=== PATIENT | female | born 1985 | race African-American/Black ===

== ENCOUNTER 2018-05-10 01:02 | Emergency (ER) | payer MEDICAID, OTHER ==
[~2018-05-10] VITALS: Ht 175.3 cm; Wt 190.5 kg
[2018-05-10 03:01] VITALS: BP 124/61
[2018-05-10 03:01] LABS: Basophils # (auto) 0 uL; Basophils % (auto) 0.5 % (0.0-2.0); Eosinophils # (auto) 0.2 uL; Hematocrit 40.6 % (36.0-46.0); Hemoglobin 13.2 g/dL (12.2-16.2); Lymphocytes # (auto) 3.4 uL; Lymphocytes % (auto) 39.5 % (10.0-50.0); Mean Corpuscular Hemoglobin 28.1 pg (28.0-32.0); Mean Corpuscular Hgb Conc. 32.5 g/dL (32.0-36.0); Mean Corpuscular Volume 86.5 fL (80.0-100.0); Monocytes # (auto) 0.6 uL; Monocytes % (auto) 6.5 % (0.0-12.0); Neutrophils # (auto) 4.5 uL; Neutrophils % (auto) 51.5 % (37.0-80.0); Platelet Count (auto) 293 10^3/uL (140-450); Red Blood Cells 4.69 10^6/uL (4.0-5.20); Red Cell Distribution Width 14.3 % (11.8-14.3); White Blood Cell 8.7 10^3/uL (4.4-10.8)
[2018-05-10 03:02] LABS: Albumin 3.3 g/dL (3.4-5.0); Anion Gap 7 (5-15); Blood Urea Nitrogen 12 mg/dL (7-18); Calcium 8.8 mg/dL (8.5-10.1); Carbon Dioxide 30 mmol/L (21-32); Chloride 101 mmol/L (98-107); Glucose 155 mg/dL (74-106); Potassium 3.5 mmol/L (3.5-5.1); Sodium 138 mmol/L (136-145)
[2018-05-10 03:04] LABS: Alanine Aminotransferase 42 U/L (13-56); Aspartate Aminotransferase 23 U/L (15-37); BUN/Creatinine Ratio 15.8; GFR African American 113 mL/min; GFR Non-African American 94 mL/min
[2018-05-10 03:09] LABS: Alkaline Phosphatase 70 U/L (45-117); Bilirubin, Total 0.2 mg/dL (0.2-1.0); Total Protein 8.2 g/dL (6.4-8.2)
[2018-05-10] MEDS ORDERED: KETOROLAC TROMETH 30 MG/ML 1ML VIAL IV ONE (03:45)
== END 2018-05-10 05:42 | disposition home or self-care (01) ==
LOC: ER 01:02
DX: R07.89 Other chest pain (principal); R42 Dizziness and giddiness; J45.909 Unspecified asthma, uncomplicated; E66.01 Morbid (severe) obesity due to excess calories; Z68.44 Body mass index [BMI] 60.0-69.9, adult
CPT/HCPCS: 36415; 71045; 80053; 83735; 84484; 85025; 93005; 96374; 99285; J1885

== ENCOUNTER 2020-06-07 23:54 | Emergency (ER) | payer MEDICAID, OTHER ==
[~2020-06-07] VITALS: Ht 175.3 cm; Wt 190.5 kg
[2020-06-08 01:06] LABS: Basophils # (auto) 0.1 10 ^3/uL (0-0.2); Eosinophils # (auto) 0.2 10 ^3/uL (0-0.8); Eosinophils % (auto) 1.6 % (0.0-7.0); Hemoglobin 12.8 g/dL (12.2-16.2); Lymphocytes # (auto) 3.9 10 ^3/uL (0.4-5.4); Mean Corpuscular Hemoglobin 28.6 pg (28.0-32.0); Mean Corpuscular Hgb Conc. 32.8 g/dL (32.0-36.0); Mean Corpuscular Volume 87.4 fL (80.0-100.0); Monocytes % (auto) 9.8 % (0.0-12.0); Neutrophils # (auto) 4.7 10 ^3/uL (1.6-8.6); Neutrophils % (auto) 47.6 % (37.0-80.0); Nucleated Red Blood Cells % 0.3 %; Platelet Count (auto) 308 10^3/uL (140-450); Red Blood Cells 4.46 10^6/uL (4.0-5.20); Red Cell Distribution Width 14.6 % (11.8-14.3); White Blood Cell 9.8 10^3/uL (4.4-10.8)
[2020-06-08 01:20] LABS: Urine Bacteria FEW /hpf (None Seen); Urine Blood Negative /uL (Negative); Urine Mucus FEW (None Seen); Urine Specific Gravity 1.026 (1.001-1.035); Urine WBC 44 /hpf (0 - 5)
[2020-06-08 01:25] VITALS: BP 119/71
[2020-06-08 01:25] LABS: Albumin 3.5 g/dL (3.4-5.0); BUN/Creatinine Ratio 21.1; Calcium 9.3 mg/dL (8.5-10.1); Magnesium 1.9 mg/dL (1.6-2.6)
[2020-06-08 01:28] LABS: Bilirubin, Total 0.3 mg/dL (0.2-1.0); Total Protein 7.9 g/dL (6.4-8.2)
== END 2020-06-08 02:55 | disposition home or self-care (01) ==
LOC: ER 23:54
DX: K80.20 Calculus of gallbladder without cholecystitis without obstruction (principal); N39.0 Urinary tract infection, site not specified; E11.9 Type 2 diabetes mellitus without complications; J45.909 Unspecified asthma, uncomplicated
CPT/HCPCS: 36415; 74176; 80053; 81001; 82150; 83690; 83735; 84702; 85025

== ENCOUNTER 2020-10-23 00:07 | Emergency (ER) | payer OTHER ==
[~2020-10-23] VITALS: Ht 172.7 cm; Wt 158.8 kg
[2020-10-23 01:12] LABS: Urine Bacteria FEW /hpf (None Seen); Urine Blood 3+ /uL (Negative); Urine Mucus FEW (None Seen); Urine Specific Gravity 1.007 (1.001-1.035); Urine WBC 9 /hpf (0 - 5)
[2020-10-23 01:35] VITALS: BP 150/88
== END 2020-10-23 03:05 | disposition home or self-care (01) ==
LOC: ER 00:09
DX: N39.0 Urinary tract infection, site not specified (principal); M54.5 Low back pain; E66.9 Obesity, unspecified; E11.9 Type 2 diabetes mellitus without complications; J45.909 Unspecified asthma, uncomplicated; Z68.43 Body mass index [BMI] 50.0-59.9, adult
CPT/HCPCS: 81001

== ENCOUNTER 2021-10-01 21:23 | Inpatient (IN) | payer OTHER ==
[~2021-10-01] VITALS: Ht 175.3 cm; Wt 224.2 kg
[2021-10-01 23:12] LABS: Basophils # (auto) 0 10 ^3/uL (0-0.2); Basophils % (auto) 0.9 % (0.0-2.0); Eosinophils # (auto) 0 10 ^3/uL (0-0.8); Hematocrit 40.8 % (36.0-46.0); Hemoglobin 13.4 g/dL (12.2-16.2); Lymphocytes # (auto) 1.4 10 ^3/uL (0.4-5.4); Lymphocytes % (auto) 34.3 % (10.0-50.0); Mean Corpuscular Hemoglobin 27.4 pg (28.0-32.0); Mean Corpuscular Hgb Conc. 32.9 g/dL (32.0-36.0); Mean Corpuscular Volume 83.5 fL (80.0-100.0); Monocytes # (auto) 0.3 10 ^3/uL (0-1.3); Monocytes % (auto) 8.4 % (0.0-12.0); Neutrophils # (auto) 2.3 10 ^3/uL (1.6-8.6); Neutrophils % (auto) 56.4 % (37.0-80.0); Nucleated Red Blood Cells % 0.2 %; Red Blood Cells 4.89 10^6/uL (4.0-5.20); Red Cell Distribution Width 14.7 % (11.8-14.3); White Blood Cell 4.1 10^3/uL (4.4-10.8)
[2021-10-01 23:32] LABS: Albumin 3.3 g/dL (3.4-5.0); Calcium 8.9 mg/dL (8.5-10.1); Potassium 3.9 mmol/L (3.5-5.1)
[2021-10-01 23:35] LABS: BUN/Creatinine Ratio 8.1; Bilirubin, Total 0.2 mg/dL (0.2-1.0)
[2021-10-02 04:29] LABS: Urine Bacteria FEW /hpf (None Seen); Urine Blood Negative /uL (Negative); Urine Mucus FEW (None Seen); Urine Specific Gravity 1.028 (1.001-1.035); Urine WBC 18 /hpf (0 - 5)
[2021-10-02] MEDS ORDERED: NITROGLYCERIN 0.4 MG SL TAB SL PRN ×2 (13:15→19:00)
[2021-10-02] MEDS ORDERED: MORPHINE SULFATE INJECTION 2 MG/ML SYRG IV PRN ×2 (13:15→19:00)
[2021-10-02] MEDS ORDERED: DICYCLOMINE HCL (10MG/ML) 2 ML AMPULE IM ONE (15:45)
[2021-10-02] MEDS ORDERED: HYDROcodone-ACET 5/325MG TAB PO PRN (19:00)
[2021-10-02] MEDS ORDERED: DEXTROSE (50%) 50ML SYRG IV PRN (19:00)
[2021-10-02] MEDS ORDERED: ACETAMINOPHEN 500 MG TAB PO PRN (19:00)
[2021-10-02] MEDS ORDERED: METOCLOPRAMIDE HCL 5MG/ml INJ 2ml VIAL IV PRN (19:00)
[2021-10-02] MEDS ORDERED: LORazepam 0.5 MG TAB PO PRN (19:00)
[2021-10-02] MEDS ORDERED: DOCUSATE SOD 100 MG CAP PO PRN (19:00)
[2021-10-02] MEDS ORDERED: ALUM & MAG HYDROX-SIMETH LIQ(MAALOX) 30 ML PO PRN (19:00)
[2021-10-02] MEDS ORDERED: REMDESIVIR PER PHARMACY 0 ML IV SCH (19:00)
[2021-10-02] MEDS ORDERED: FAMOTIDINE (10MG/ML) 2ML VL IV ONE (19:15)
[2021-10-02] MEDS ORDERED: cefTRIAXone 1GM/50ML D5W 50 ML IV ONE (19:15)
[2021-10-02] MEDS ORDERED: BENAZEPRIL HCL 10 MG TAB PO ONE (19:15)
[2021-10-02 20:05] LABS: Amphetamine Screen, Urine NEGATIVE (NEGATIVE); Barbiturate Scree,Urine NEGATIVE (NEGATIVE); Benzodiazephine Screen, Urine NEGATIVE (NEGATIVE); Cannabinoid Screen, Urine NEGATIVE (NEGATIVE); Cocaine Screen, Urine NEGATIVE (NEGATIVE); Opiate Scree,Urine NEGATIVE (NEGATIVE); Phencyclidine Screen, Urine NEGATIVE (NEGATIVE)
[2021-10-02 21:39] LABS: Albumin 3.4 g/dL (3.4-5.0); Calcium 8.8 mg/dL (8.5-10.1); Potassium 3.7 mmol/L (3.5-5.1)
[2021-10-02] MEDS ORDERED: REMDESIVIR 200 MG in NS 210ml LOADING DOSE ADULT IV ONE (21:45)
[2021-10-02 21:53] LABS: BUN/Creatinine Ratio 13.9; Bilirubin, Total 0.2 mg/dL (0.2-1.0); CRP High Sensitivity 12.1 mg/dL (< 0.3); Magnesium 3.2 mg/dL (1.6-2.6); Total Protein 8.3 g/dL (6.4-8.2)
[2021-10-02 21:59] LABS: Basophils # (auto) 0 10 ^3/uL (0-0.2); Basophils % (auto) 0.6 % (0.0-2.0); Eosinophils # (auto) 0 10 ^3/uL (0-0.8); Hematocrit 41.7 % (36.0-46.0); Hemoglobin 13.8 g/dL (12.2-16.2); Lymphocytes # (auto) 1.5 10 ^3/uL (0.4-5.4); Lymphocytes % (auto) 36.4 % (10.0-50.0); Mean Corpuscular Hemoglobin 27.7 pg (28.0-32.0); Mean Corpuscular Hgb Conc. 33.1 g/dL (32.0-36.0); Mean Corpuscular Volume 83.8 fL (80.0-100.0); Monocytes # (auto) 0.4 10 ^3/uL (0-1.3); Monocytes % (auto) 10.6 % (0.0-12.0); Neutrophils # (auto) 2.2 10 ^3/uL (1.6-8.6); Neutrophils % (auto) 52.4 % (37.0-80.0); Nucleated Red Blood Cells % 0.5 %; Red Blood Cells 4.98 10^6/uL (4.0-5.20); Red Cell Distribution Width 14.9 % (11.8-14.3); White Blood Cell 4.2 10^3/uL (4.4-10.8)
[2021-10-02 22:00] LABS: Thyroid Stimulating Hormone 2.25 uIU/mL (0.358-3.74)
[2021-10-02] MEDS ORDERED: ATORVASTATIN 20 MG TAB PO SCH (22:00)
[2021-10-02] MEDS ORDERED: DICYCLOMINE HCL 10 MG CAP PO PRN (22:00)
[2021-10-02] MEDS ORDERED: BECL80AE11 INH (22:39)
[2021-10-02] MEDS ORDERED: ALBU108A5 INH (22:39)
[2021-10-02] MEDS ORDERED: METF-869 PO (22:39)
[2021-10-02] MEDS ORDERED: CHOL10009 PO (22:39)
[2021-10-02] MEDS ORDERED: LISI-716 PO (22:39)
[2021-10-02 22:40] VITALS: BP 108/77
[2021-10-02] MEDS: FAMOTIDINE (10MG/ML) 2ML VL IV SCH (23:48)
[2021-10-02] MEDS: POTASSIUM CHL 20 Meq TABLET PO SCH (23:49)
[2021-10-02] MEDS: INSULIN LANTUS (GLARGINE) 1 /0.01ml (100units/ml) SC SCH (23:50)
[2021-10-02] MEDS: ENOXAPARIN SOD 40 MG/0.4 ML SYRINGE SC SCH (23:50)
[2021-10-02] MEDS: InsuLIN REG 1unit/0.01ml Soln (100units/ml) SC SCH (23:50)
[2021-10-02] MEDS: ACCU-CHEK COMFORT CURVE STRIP VI SCH (23:51)
[2021-10-03 05:00] VITALS: BP 113/77
[2021-10-03] MEDS: ACCU-CHEK COMFORT CURVE STRIP VI SCH ×4 (06:38→22:59)
[2021-10-03] MEDS: FUROSEMIDE 20 MG/2 ML VIAL IV SCH ×2 (06:38→17:58)
[2021-10-03] MEDS: InsuLIN REG 1unit/0.01ml Soln (100units/ml) SC SCH ×4 (06:39→23:00)
[2021-10-03] MEDS: INSULIN LANTUS (GLARGINE) 1 /0.01ml (100units/ml) SC SCH ×2 (06:45→23:00)
[2021-10-03] MEDS: BUDESONIDE (INHALATION) 180 MCG IH IN SCH ×2 (07:40→22:26)
[2021-10-03 08:28] LABS: Basophils # (auto) 0 10 ^3/uL (0-0.2); Basophils % (auto) 0.4 % (0.0-2.0); Eosinophils # (auto) 0 10 ^3/uL (0-0.8); Eosinophils % (auto) 0.5 % (0.0-7.0); Hematocrit 39.8 % (36.0-46.0); Hemoglobin 13.7 g/dL (12.2-16.2); Lymphocytes # (auto) 1.8 10 ^3/uL (0.4-5.4); Lymphocytes % (auto) 40.4 % (10.0-50.0); Mean Corpuscular Hemoglobin 28.5 pg (28.0-32.0); Mean Corpuscular Hgb Conc. 34.3 g/dL (32.0-36.0); Mean Corpuscular Volume 83.2 fL (80.0-100.0); Monocytes # (auto) 0.4 10 ^3/uL (0-1.3); Monocytes % (auto) 9.6 % (0.0-12.0); Neutrophils # (auto) 2.2 10 ^3/uL (1.6-8.6); Neutrophils % (auto) 49.1 % (37.0-80.0); Nucleated Red Blood Cells % 0.3 %; Potassium 3.8 mmol/L (3.5-5.1); Red Blood Cells 4.79 10^6/uL (4.0-5.20); Red Cell Distribution Width 14.6 % (11.8-14.3); White Blood Cell 4.5 10^3/uL (4.4-10.8)
[2021-10-03 08:45] LABS: Albumin 3.2 g/dL (3.4-5.0); BUN/Creatinine Ratio 14.3; Bilirubin, Total 0.3 mg/dL (0.2-1.0); Calcium 8.8 mg/dL (8.5-10.1); Phosphorus 2.8 mg/dL (2.5-4.90); Total Protein 7.9 g/dL (6.4-8.2)
[2021-10-03] MEDS: ASPirin 81 mg TAB PO SCH (08:58)
[2021-10-03] MEDS: AZITHROMYCIN 500MG/ 250ML 250 ML IV SCH (08:58)
[2021-10-03] MEDS: IVERMECTIN 3 MG TAB PO SCH (08:59)
[2021-10-03] MEDS: FAMOTIDINE (10MG/ML) 2ML VL IV SCH (08:59)
[2021-10-03] MEDS: DexAMETHasone SOD PHOS 10MG/1ML VIAL INJ IV SCH (09:00)
[2021-10-03] MEDS ORDERED: REMDESIVIR 200 MG in NS 210ml LOADING DOSE ADULT IV ONE ×2 (09:00→13:00)
[2021-10-03] MEDS: POTASSIUM CHL 20 Meq TABLET PO SCH ×2 (09:00→22:58)
[2021-10-03] MEDS: ASCORBIC ACID 1,000 MG TAB PO SCH (09:01)
[2021-10-03] MEDS: ZINC SULFATE 220mg CAP or TAB PO SCH (09:01)
[2021-10-03] MEDS: BENAZEPRIL HCL 10 MG TAB PO SCH (09:02)
[2021-10-03] MEDS: cefTRIAXone 1GM/50ML D5W 50 ML IV SCH (09:03)
[2021-10-03] MEDS: ENOXAPARIN SOD 40 MG/0.4 ML SYRINGE SC SCH ×2 (09:03→22:58)
[2021-10-03] MEDS: CHOLECALCIFEROL (VITD3) 2,000 UNIT CAP/TAB PO SCH (09:03)
[2021-10-03 10:15] VITALS: BP 124/89
[2021-10-03] MEDS: ALBUTEROL SULF HFA 90MCG INH 200DOSE IN PRN ×2 (11:12→22:26)
[2021-10-03 12:55] VITALS: BP 125/85
[2021-10-03] MEDS ORDERED: REMDESIVIR 100mg 100 MG in SODIUM CHL 0.9% 230 ML IV SCH (15:00)
[2021-10-03 16:45] VITALS: BP 139/73
[2021-10-03] MEDS: PANTOPRAZOLE 40 MG TAB PO SCH (17:58)
[2021-10-03 22:00] VITALS: BP 119/66
[2021-10-04 05:00] VITALS: BP 151/89
[2021-10-04] MEDS: FUROSEMIDE 20 MG/2 ML VIAL IV SCH ×2 (06:18→18:46)
[2021-10-04] MEDS: InsuLIN REG 1unit/0.01ml Soln (100units/ml) SC SCH ×4 (06:19→23:46)
[2021-10-04] MEDS: INSULIN LANTUS (GLARGINE) 1 /0.01ml (100units/ml) SC SCH ×2 (06:20→23:47)
[2021-10-04] MEDS: ACCU-CHEK COMFORT CURVE STRIP VI SCH ×4 (07:00→23:57)
[2021-10-04 09:00] VITALS: BP 145/101
[2021-10-04] MEDS ORDERED: FUROSEMIDE 20 MG/2 ML VIAL IV ONE (09:00)
[2021-10-04] MEDS: BUDESONIDE (INHALATION) 180 MCG IH IN SCH ×2 (09:19→18:56)
[2021-10-04] MEDS: ALBUTEROL SULF HFA 90MCG INH 200DOSE IN PRN ×2 (09:19→18:56)
[2021-10-04] MEDS: cefTRIAXone 1GM/50ML D5W 50 ML IV SCH (09:30)
[2021-10-04] MEDS: PANTOPRAZOLE 40 MG TAB PO SCH (09:35)
[2021-10-04] MEDS: ENOXAPARIN SOD 40 MG/0.4 ML SYRINGE SC SCH ×2 (09:35→23:57)
[2021-10-04] MEDS: BENAZEPRIL HCL 10 MG TAB PO SCH (09:35)
[2021-10-04] MEDS: DexAMETHasone SOD PHOS 10MG/1ML VIAL INJ IV SCH (09:35)
[2021-10-04] MEDS: IVERMECTIN 3 MG TAB PO SCH (09:35)
[2021-10-04] MEDS: ASCORBIC ACID 1,000 MG TAB PO SCH (09:35)
[2021-10-04] MEDS: ASPirin 81 mg TAB PO SCH (09:35)
[2021-10-04] MEDS: CHOLECALCIFEROL (VITD3) 2,000 UNIT CAP/TAB PO SCH (09:35)
[2021-10-04] MEDS: ZINC SULFATE 220mg CAP or TAB PO SCH (09:35)
[2021-10-04] MEDS: POTASSIUM CHL 20 Meq TABLET PO SCH ×2 (10:01→23:45)
[2021-10-04 10:26] LABS: Albumin 3.1 g/dL (3.4-5.0)
[2021-10-04 10:28] LABS: BUN/Creatinine Ratio 15.6
[2021-10-04 10:30] LABS: Bilirubin, Total 0.4 mg/dL (0.2-1.0); Total Protein 7.7 g/dL (6.4-8.2)
[2021-10-04] MEDS: AZITHROMYCIN 500MG/ 250ML 250 ML IV SCH (10:30)
[2021-10-04 13:10] VITALS: BP 124/83
[2021-10-04] MEDS ORDERED: DEXTROSE (50%) 50ML SYRG IV PRN (15:00)
[2021-10-04] MEDS: REMDESIVIR 100mg 100 MG in SODIUM CHL 0.9% 230 ML IV SCH (15:26)
[2021-10-04 17:00] VITALS: BP 144/94
[2021-10-04] MEDS: metFORMIN HYDROCHLORIDE 850 MG TAB PO SCH (18:47)
[2021-10-04 22:00] VITALS: BP 129/89
[2021-10-05] MEDS: MORPHINE SULFATE INJECTION 2 MG/ML SYRG IV PRN (00:40)
[2021-10-05 05:00] VITALS: BP 135/91
[2021-10-05] MEDS: InsuLIN REG 1unit/0.01ml Soln (100units/ml) SC SCH ×4 (06:25→22:42)
[2021-10-05] MEDS: ACCU-CHEK COMFORT CURVE STRIP VI SCH ×4 (06:26→22:43)
[2021-10-05] MEDS: INSULIN LANTUS (GLARGINE) 1 /0.01ml (100units/ml) SC SCH ×2 (06:26→22:42)
[2021-10-05] MEDS: FUROSEMIDE 20 MG/2 ML VIAL IV SCH ×2 (06:28→18:09)
[2021-10-05 08:00] VITALS: BP 106/57
[2021-10-05] MEDS: metFORMIN HYDROCHLORIDE 850 MG TAB PO SCH ×2 (08:30→18:09)
[2021-10-05] MEDS: ZINC SULFATE 220mg CAP or TAB PO SCH (08:31)
[2021-10-05] MEDS: DexAMETHasone SOD PHOS 10MG/1ML VIAL INJ IV SCH (08:31)
[2021-10-05] MEDS: ASPirin 81 mg TAB PO SCH (08:31)
[2021-10-05] MEDS: cefTRIAXone 1GM/50ML D5W 50 ML IV SCH (08:31)
[2021-10-05] MEDS: BENAZEPRIL HCL 10 MG TAB PO SCH (08:32)
[2021-10-05] MEDS: IVERMECTIN 3 MG TAB PO SCH (08:32)
[2021-10-05] MEDS: POTASSIUM CHL 20 Meq TABLET PO SCH ×2 (08:32→22:43)
[2021-10-05] MEDS: PANTOPRAZOLE 40 MG TAB PO SCH (08:32)
[2021-10-05] MEDS: ENOXAPARIN SOD 40 MG/0.4 ML SYRINGE SC SCH ×2 (08:33→22:43)
[2021-10-05] MEDS: CHOLECALCIFEROL (VITD3) 2,000 UNIT CAP/TAB PO SCH (08:33)
[2021-10-05] MEDS: ASCORBIC ACID 1,000 MG TAB PO SCH (08:33)
[2021-10-05 08:35] LABS: Potassium 3.9 mmol/L (3.5-5.1)
[2021-10-05 08:42] LABS: Albumin 3.3 g/dL (3.4-5.0); BUN/Creatinine Ratio 22.4; Bilirubin, Total 0.2 mg/dL (0.2-1.0); Calcium 9.2 mg/dL (8.5-10.1); Total Protein 8.4 g/dL (6.4-8.2)
[2021-10-05] MEDS: AZITHROMYCIN 500MG/ 250ML 250 ML IV SCH (10:47)
[2021-10-05 12:00] VITALS: BP 110/76
[2021-10-05] MEDS: REMDESIVIR 100mg 100 MG in SODIUM CHL 0.9% 230 ML IV SCH (14:22)
[2021-10-05] MEDS: BUDESONIDE (INHALATION) 180 MCG IH IN SCH ×2 (15:31→19:19)
[2021-10-05] MEDS: ALBUTEROL SULF HFA 90MCG INH 200DOSE IN PRN ×2 (15:31→19:19)
[2021-10-05 16:00] VITALS: BP 131/88
[2021-10-05 22:00] VITALS: BP 129/78
[2021-10-06 05:00] VITALS: BP 100/59
[2021-10-06] MEDS: FUROSEMIDE 20 MG/2 ML VIAL IV SCH ×2 (06:46→16:28)
[2021-10-06] MEDS: INSULIN LANTUS (GLARGINE) 1 /0.01ml (100units/ml) SC SCH ×2 (06:47→23:16)
[2021-10-06] MEDS: InsuLIN REG 1unit/0.01ml Soln (100units/ml) SC SCH ×4 (06:47→23:15)
[2021-10-06] MEDS: ACCU-CHEK COMFORT CURVE STRIP VI SCH ×4 (06:48→23:16)
[2021-10-06 08:00] VITALS: BP 97/72
[2021-10-06] MEDS: metFORMIN HYDROCHLORIDE 850 MG TAB PO SCH ×2 (08:00→16:28)
[2021-10-06 08:11] LABS: Basophils # (auto) 0 10 ^3/uL (0-0.2); Basophils % (auto) 0.2 % (0.0-2.0); Eosinophils # (auto) 0 10 ^3/uL (0-0.8); Eosinophils % (auto) 0.2 % (0.0-7.0); Hematocrit 42.7 % (36.0-46.0); Lymphocytes # (auto) 3.5 10 ^3/uL (0.4-5.4); Mean Corpuscular Hemoglobin 27.4 pg (28.0-32.0); Mean Corpuscular Hgb Conc. 32.9 g/dL (32.0-36.0); Mean Corpuscular Volume 83.3 fL (80.0-100.0); Monocytes # (auto) 0.8 10 ^3/uL (0-1.3); Monocytes % (auto) 8.9 % (0.0-12.0); Neutrophils # (auto) 4.6 10 ^3/uL (1.6-8.6); Neutrophils % (auto) 51.7 % (37.0-80.0); Nucleated Red Blood Cells % 0.1 %; Red Blood Cells 5.13 10^6/uL (4.0-5.20); Red Cell Distribution Width 14.7 % (11.8-14.3)
[2021-10-06 08:21] LABS: Calcium 9.9 mg/dL (8.5-10.1)
[2021-10-06] MEDS: ALBUTEROL SULF HFA 90MCG INH 200DOSE IN PRN (08:34)
[2021-10-06] MEDS: BUDESONIDE (INHALATION) 180 MCG IH IN SCH ×2 (08:34→21:16)
[2021-10-06 08:43] LABS: Albumin 3.5 g/dL (3.4-5.0); Bilirubin, Total 0.3 mg/dL (0.2-1.0); Total Protein 8.5 g/dL (6.4-8.2)
[2021-10-06] MEDS: ASPirin 81 mg TAB PO SCH (09:09)
[2021-10-06] MEDS: cefTRIAXone 1GM/50ML D5W 50 ML IV SCH (09:09)
[2021-10-06] MEDS: ZINC SULFATE 220mg CAP or TAB PO SCH (09:09)
[2021-10-06] MEDS: POTASSIUM CHL 20 Meq TABLET PO SCH ×2 (09:09→23:14)
[2021-10-06] MEDS: DexAMETHasone SOD PHOS 10MG/1ML VIAL INJ IV SCH (09:09)
[2021-10-06] MEDS: IVERMECTIN 3 MG TAB PO SCH (09:09)
[2021-10-06] MEDS: PANTOPRAZOLE 40 MG TAB PO SCH (09:09)
[2021-10-06] MEDS: AZITHROMYCIN 500MG/ 250ML 250 ML IV SCH (09:09)
[2021-10-06] MEDS: BENAZEPRIL HCL 10 MG TAB PO SCH (09:09)
[2021-10-06] MEDS: ASCORBIC ACID 1,000 MG TAB PO SCH (09:10)
[2021-10-06] MEDS: ENOXAPARIN SOD 40 MG/0.4 ML SYRINGE SC SCH ×2 (09:10→23:16)
[2021-10-06] MEDS: CHOLECALCIFEROL (VITD3) 2,000 UNIT CAP/TAB PO SCH (09:10)
[2021-10-06] MEDS ORDERED: DEX4T PO (09:32)
[2021-10-06] MEDS ORDERED: ALBUAER3 IN (09:32)
[2021-10-06] MEDS ORDERED: ASPI1TAB20 PO (09:32)
[2021-10-06] MEDS ORDERED: METF-371 PO (09:32)
[2021-10-06] MEDS ORDERED: FURO40TA4 PO (09:32)
[2021-10-06] MEDS ORDERED: ASCO10003 PO (09:32)
[2021-10-06] MEDS ORDERED: CHOL1CAP47 PO (09:32)
[2021-10-06] MEDS ORDERED: ZINC220T6 PO (09:32)
[2021-10-06 12:00] VITALS: BP 127/84
[2021-10-06] MEDS: REMDESIVIR 100mg 100 MG in SODIUM CHL 0.9% 230 ML IV SCH (15:00)
[2021-10-06] MEDS ORDERED: BENA10TA15 PO (15:08)
[2021-10-06] MEDS ORDERED: BACL20TA PO (15:08)
[2021-10-06 16:00] VITALS: BP 127/83
[2021-10-06] MEDS ORDERED: fentaNYL Drip 2500mCg/250mlNS 250 ML IV ONE (18:18)
[2021-10-06] MEDS ORDERED: MIDAZOLAM DRIP 50 mg/50mL 50 ML IV ONE (18:18)
[2021-10-06 21:46] VITALS: BP 134/87
[2021-10-06] MEDS: MORPHINE SULFATE INJECTION 2 MG/ML SYRG IV PRN (23:52)
[2021-10-07] MEDS: ALBUTEROL SULF HFA 90MCG INH 200DOSE IN PRN ×2 (01:05→12:07)
[2021-10-07 05:00] VITALS: BP 114/76
[2021-10-07] MEDS: FUROSEMIDE 20 MG/2 ML VIAL IV SCH ×2 (06:27→18:00)
[2021-10-07] MEDS: InsuLIN REG 1unit/0.01ml Soln (100units/ml) SC SCH ×3 (06:28→17:00)
[2021-10-07] MEDS: INSULIN LANTUS (GLARGINE) 1 /0.01ml (100units/ml) SC SCH (06:28)
[2021-10-07] MEDS: ACCU-CHEK COMFORT CURVE STRIP VI SCH ×3 (06:29→17:00)
[2021-10-07] MEDS: BUDESONIDE (INHALATION) 180 MCG IH IN SCH (08:28)
[2021-10-07 09:00] VITALS: BP 134/96
[2021-10-07] MEDS: metFORMIN HYDROCHLORIDE 850 MG TAB PO SCH ×2 (09:26→18:00)
[2021-10-07] MEDS: ASPirin 81 mg TAB PO SCH (09:27)
[2021-10-07] MEDS: ZINC SULFATE 220mg CAP or TAB PO SCH (09:27)
[2021-10-07] MEDS: cefTRIAXone 1GM/50ML D5W 50 ML IV SCH (09:27)
[2021-10-07] MEDS: DexAMETHasone SOD PHOS 10MG/1ML VIAL INJ IV SCH (09:27)
[2021-10-07] MEDS: IVERMECTIN 3 MG TAB PO SCH (09:28)
[2021-10-07] MEDS: PANTOPRAZOLE 40 MG TAB PO SCH (09:28)
[2021-10-07] MEDS: POTASSIUM CHL 20 Meq TABLET PO SCH (09:28)
[2021-10-07] MEDS: BENAZEPRIL HCL 10 MG TAB PO SCH (09:28)
[2021-10-07] MEDS: CHOLECALCIFEROL (VITD3) 2,000 UNIT CAP/TAB PO SCH (09:29)
[2021-10-07] MEDS: ENOXAPARIN SOD 40 MG/0.4 ML SYRINGE SC SCH (09:29)
[2021-10-07] MEDS: ASCORBIC ACID 1,000 MG TAB PO SCH (09:29)
[2021-10-07] MEDS: AZITHROMYCIN 500MG/ 250ML 250 ML IV SCH (11:04)
[2021-10-07 13:00] VITALS: BP 97/58
[2021-10-07] MEDS: REMDESIVIR 100mg 100 MG in SODIUM CHL 0.9% 230 ML IV SCH (15:30)
[2021-10-07 17:00] VITALS: BP 129/87
[2021-10-07 17:16] VITALS: BP 127/87
== END 2021-10-07 17:45 | disposition home or self-care (01) | DRG 137 ==
LOC: ER 21:25 → TELE 10-02 13:07 → TELE-WESTW 10-02 21:45
PROVIDERS: ADMIT Hospitalist; ATTEND Internal Medicine
PROC: XW033E5 Introduction of Remdesivir Anti-infective into Peripheral Vein, Percutaneous Approach, New Technology Group 5 (ICD-10-PCS; principal; 2021-10-04)
DX: U07.1 COVID-19 (principal); J96.01 Acute respiratory failure with hypoxia; J12.82 Pneumonia due to coronavirus disease 2019; D89.839 Cytokine release syndrome, grade unspecified; E88.09 Other disorders of plasma-protein metabolism, not elsewhere classified; E66.2 Morbid (severe) obesity with alveolar hypoventilation; Z68.45 Body mass index [BMI] 70 or greater, adult; J45.909 Unspecified asthma, uncomplicated; I10 Essential (primary) hypertension; N39.0 Urinary tract infection, site not specified; E11.9 Type 2 diabetes mellitus without complications; E78.5 Hyperlipidemia, unspecified; Z88.0 Allergy status to penicillin; Z23 Encounter for immunization
CPT/HCPCS: 36415; 36600; 71045; 80053; 80061; 80307; 81001; 81025; 82306; 82728; 82805; 82962; 83036; 83605; 83615; 83735; 83880; 84100; 84443; 84484; 85025; 85379; 86141; 87040; 87086; 87426; 94640; 96372; G0378; J0696; J1100; J1815; J2250; J3490

== ENCOUNTER 2022-05-07 19:08 | Emergency (ER) | payer OTHER ==
[~2022-05-07] VITALS: Ht 172.7 cm; Wt 222.0 kg
[~2022-05-07 19:08] MED LIST: ALBUAER3 IN; ASCO10003 PO; ASPI1TAB20 PO; BACL20TA PO; BECL80AE11 INH; BENA10TA15 PO; CHOL1CAP47 PO; DEX4T PO; FURO40TA4 PO; METF-371 PO; ZINC220T6 PO
[2022-05-07] MEDS ORDERED: cloNIDine HCL 0.1 MG TAB PO ONE (19:45)
[2022-05-07 21:01] LABS: Albumin 3.5 g/dL (3.4-5.0); BUN/Creatinine Ratio 20.2; Calcium 9.4 mg/dL (8.5-10.1); Magnesium 2.1 mg/dL (1.6-2.6); Potassium 4.2 mmol/L (3.5-5.1)
[2022-05-07 21:04] LABS: Bilirubin, Total 0.2 mg/dL (0.2-1.0)
[2022-05-07 21:08] LABS: INR 1.02 (0.9-1.15); Partial Thromboplastin Time 28.2 sec (24.6-33.4)
[2022-05-07 21:15] LABS: Basophils # (auto) 0.1 10 ^3/uL (0-0.2); Basophils % (auto) 0.7 % (0.0-2.0); Eosinophils # (auto) 0.1 10 ^3/uL (0-0.8); Eosinophils % (auto) 1.3 % (0.0-7.0); Hemoglobin 12.7 g/dL (12.2-16.2); Lymphocytes % (auto) 24.5 % (10.0-50.0); Mean Corpuscular Hemoglobin 27.1 pg (28.0-32.0); Mean Corpuscular Hgb Conc. 31.7 g/dL (32.0-36.0); Mean Corpuscular Volume 85.5 fL (80.0-100.0); Monocytes # (auto) 0.8 10 ^3/uL (0-1.3); Monocytes % (auto) 9.1 % (0.0-12.0); Neutrophils # (auto) 5.3 10 ^3/uL (1.6-8.6); Neutrophils % (auto) 64.4 % (37.0-80.0); Nucleated Red Blood Cells % 0.1 %; Red Blood Cells 4.68 10^6/uL (4.0-5.20); Red Cell Distribution Width 14.4 % (11.8-14.3); White Blood Cell 8.3 10^3/uL (4.4-10.8)
[2022-05-08 00:04] LABS: Urine Bacteria NONE SEEN /hpf (None Seen); Urine Blood Negative /uL (Negative); Urine Specific Gravity 1.029 (1.001-1.035); Urine WBC 21 /hpf (0 - 5)
[2022-05-08] MEDS ORDERED: NITR-87 PO (02:09)
[2022-05-08] MEDS ORDERED: NITROFURANTOIN 100 mg CAP PO ONE (02:15)
[2022-05-08 03:20] VITALS: BP 128/87
== END 2022-05-08 03:54 | disposition home or self-care (01) ==
LOC: EDBD 19:08 → ER 19:08 → EDUNIT# 19:08 → ER 05-08 03:54
DX: M79.662 Pain in left lower leg (principal); M79.661 Pain in right lower leg; E11.65 Type 2 diabetes mellitus with hyperglycemia; E66.01 Morbid (severe) obesity due to excess calories; J45.909 Unspecified asthma, uncomplicated; I10 Essential (primary) hypertension; Z88.0 Allergy status to penicillin; Z68.45 Body mass index [BMI] 70 or greater, adult
CPT/HCPCS: 36415; 80053; 81001; 83735; 83880; 84484; 85025; 85610; 85730; 93005; 93970

== ENCOUNTER 2023-12-26 07:23 | Emergency (ER) | payer OTHER ==
[~2023-12-26] VITALS: Ht 172.7 cm; Wt 217.2 kg
[~2023-12-26 07:23] MED LIST changes: -BENA10TA15 PO; +BENA10TA90 PO; +NITR-87 PO
[2023-12-26 08:26] LABS: Basophils # (auto) 0.1 10 ^3/uL (0-0.2); Eosinophils # (auto) 0.1 10 ^3/uL (0-0.8); Eosinophils % (auto) 1.9 % (0.0-7.0); Hematocrit 39.7 % (36.0-46.0); Lymphocytes # (auto) 2.9 10 ^3/uL (0.4-5.4); Lymphocytes % (auto) 39.3 % (10.0-50.0); Mean Corpuscular Hemoglobin 28.6 pg (28.0-32.0); Mean Corpuscular Hgb Conc. 32.7 g/dL (32.0-36.0); Mean Corpuscular Volume 87.3 fL (80.0-100.0); Monocytes # (auto) 0.7 10 ^3/uL (0-1.3); Monocytes % (auto) 8.9 % (0.0-12.0); Neutrophils # (auto) 3.7 10 ^3/uL (1.6-8.6); Neutrophils % (auto) 48.9 % (37.0-80.0); Nucleated Red Blood Cells % 0.2 %; Red Blood Cells 4.55 10^6/uL (4.0-5.20); Red Cell Distribution Width 13.5 % (11.8-14.3); White Blood Cell 7.5 10^3/uL (4.4-10.8)
[2023-12-26] MEDS: LIDOCAINE VISCOUS 2% 15ML UD PO ONE (08:40)
[2023-12-26] MEDS: ONDANSETRON ODT 4 MG TAB PO ONE (08:40)
[2023-12-26] MEDS: DONNATAL 5ml ORAL Elix (BELLADONNA ALK-PHENOBARB) PO ONE (08:41)
[2023-12-26] MEDS: MAALOX PLUS or MAALOX 30 ML PO ONE (08:41)
[2023-12-26 08:50] VITALS: BP 145/91; PULSE 87; RESP 17; TEMP 97.4; O2SAT 96
[2023-12-26 08:57] LABS: Urine Bacteria FEW /hpf (None Seen); Urine Blood Negative /uL (Negative); Urine Clarity Turbid (Clear); Urine Color Yellow (Yellow); Urine Mucus FEW (None Seen); Urine Protein, UAD TRACE (Negative); Urine Specific Gravity 1.028 (1.001-1.035); Urine Urobilinogen Normal (Negative); Urine WBC 8 /hpf (0 - 5); Urine pH 5.5 (5.0-9.0)
[2023-12-26 09:00] LABS: Alanine Aminotransferase 28 U/L (7-40); Albumin 4.3 g/dL (3.2-4.8); Alkaline Phosphatase 58 U/L (46-116); Anion Gap 8 (5-15); Aspartate Aminotransferase 20 U/L (13-40); BUN/Creatinine Ratio 12.1 (10.0-20.0); Blood Urea Nitrogen 8 mg/dL (9-23); Calcium 9.4 mg/dL (8.5-10.1); Carbon Dioxide 25 mmol/L (20-30); Chloride 105 mmol/L (98-107); Glucose 173 mg/dL (74-106); Potassium 3.6 mmol/L (3.5-5.1); Sodium 138 mmol/L (136-145)
[2023-12-26 09:01] LABS: Bilirubin, Total 0.4 mg/dL (0.2-1.0)
[2023-12-26 10:18] LABS: Lipase 31 U/L (12-53); Magnesium 1.7 mg/dL (1.6-2.6)
[2023-12-26 15:14] LABS: Urine Bacteria FEW /hpf (None Seen); Urine Blood Negative /uL (Negative); Urine Clarity Turbid (Clear); Urine Color Yellow (Yellow); Urine Mucus FEW (None Seen); Urine Protein, UAD 1+ (Negative); Urine Urobilinogen Normal (Negative); Urine WBC 16 /hpf (0 - 5); Urine pH 5.5 (5.0-9.0)
== END 2023-12-26 17:50 | disposition left against medical advice (07) ==
LOC: ER 07:23
DX: R10.13 Epigastric pain (principal); R10.2 Pelvic and perineal pain; J45.909 Unspecified asthma, uncomplicated; E11.9 Type 2 diabetes mellitus without complications; I10 Essential (primary) hypertension; Z32.02 Encounter for pregnancy test, result negative; Z88.0 Allergy status to penicillin
CPT/HCPCS: 36415; 80053; 81001; 81025; 83690; 83735; 84702; 85025; 99284; Q0162

== ENCOUNTER 2024-03-13 05:46 | Inpatient (IN) | payer OTHER ==
[2024-03-13] VITALS (10 sets, daily range): BP systolic 110–140; BP diastolic 53–105; PULSE 60–73; RESP 13–20; TEMP 97.6–98; O2SAT 94–100
[~2024-03-13] VITALS: Ht 175.3 cm; Wt 214.8 kg
[2024-03-13 09:00] LABS: COVID19 ANTIGEN SOFIA FIA POSITIVE (NEGATIVE)
[2024-03-13 09:11] LABS: Basophils # (auto) 0 10 ^3/uL (0-0.2); Basophils % (auto) 0.7 % (0.0-2.0); Eosinophils # (auto) 0.1 10 ^3/uL (0-0.8); Eosinophils % (auto) 1.7 % (0.0-7.0); Hematocrit 40.8 % (36.0-46.0); Hemoglobin 13.4 g/dL (12.2-16.2); Lymphocytes # (auto) 2.4 10 ^3/uL (0.4-5.4); Lymphocytes % (auto) 51.4 % (10.0-50.0); Mean Corpuscular Hemoglobin 28.8 pg (28.0-32.0); Mean Corpuscular Hgb Conc. 32.8 g/dL (32.0-36.0); Mean Corpuscular Volume 87.8 fL (80.0-100.0); Monocytes # (auto) 0.6 10 ^3/uL (0-1.3); Monocytes % (auto) 13.9 % (0.0-12.0); Neutrophils # (auto) 1.5 10 ^3/uL (1.6-8.6); Neutrophils % (auto) 32.3 % (37.0-80.0); Nucleated Red Blood Cells % 0.2 %; Red Blood Cells 4.65 10^6/uL (4.0-5.20); Red Cell Distribution Width 14.5 % (11.8-14.3); White Blood Cell 4.7 10^3/uL (4.4-10.8)
[2024-03-13 09:14] LABS: Chloride 104 mmol/L (98-107); Potassium 3.8 mmol/L (3.5-5.1); Sodium 139 mmol/L (136-145)
[2024-03-13 09:15] LABS: Anion Gap 5 (5-15); Carbon Dioxide 30 mmol/L (20-30)
[2024-03-13 09:16] LABS: Calcium 9.6 mg/dL (8.5-10.1)
[2024-03-13 09:16] LABS: Urine Bacteria FEW /hpf (None Seen); Urine Blood Negative /uL (Negative); Urine Clarity Clear (Clear); Urine Color Light-Yellow (Yellow); Urine Protein, UAD Negative (Negative); Urine Specific Gravity 1.014 (1.001-1.035); Urine Urobilinogen Normal (Negative); Urine WBC 6 /hpf (0 - 5)
[2024-03-13 09:20] LABS: BUN/Creatinine Ratio 10.3 (10.0-20.0); Blood Urea Nitrogen 7 mg/dL (9-23); Glucose 141 mg/dL (74-106)
[2024-03-13] MEDS ORDERED: PATIENTS OWN MEDICATION (Baclofen 1 TAB) PO PRN (10:45)
[2024-03-13] MEDS ORDERED: DEXTROSE (50%) 50ML SYRG IV PRN (10:45)
[2024-03-13] MEDS: InsuLIN REG 1unit/0.01ml Soln (100units/ml) SC SCH (11:11)
[2024-03-13] MEDS: ACCU-CHEK COMFORT CURVE STRIP VI SCH (11:11)
[2024-03-13] MEDS: cefTRIAXone 1GM/50ML D5W 50 ML IV ONE (11:13)
[2024-03-13] MEDS ORDERED: BACLOFEN 10 MG TAB PO PRN (11:15)
[2024-03-13] MEDS: SODIUM CHLORIDE 0.9% 1,000 ML IV SCH (11:27)
[2024-03-13 11:34] LABS: LDL Cholesterol 78 mg/dL (< 100); Triglycerides 159 mg/dL (< 150)
[2024-03-13 11:35] LABS: Cholesterol 140 mg/dL (< 200); HDL Cholesterol 45 mg/dL (40-59)
[2024-03-13] MEDS: ALBUTEROL SULF 2.5 MG/0.5ML(0.5%) NEB SOLN NEB PRN (12:15)
[2024-03-13] MEDS: ALBUTEROL SULF 2.5 MG/0.5ML(0.5%) NEB SOLN NEB SCH (14:11)
[2024-03-13] MEDS: IPRATROPIUM BROM 0.5 MG/2.5ML INH SOL NEB SCH (14:11)
[2024-03-13] MEDS ORDERED: ALBUTEROL SULF HFA 90MCG INH 200DOSE IN PRN (18:00)
[2024-03-14] VITALS (10 sets, daily range): BP systolic 119–137; BP diastolic 70–89; PULSE 63–83; RESP 18–22; TEMP 97.6–98.1; O2SAT 94–98
[2024-03-14 06:56] LABS: Basophils # (auto) 0 10 ^3/uL (0-0.2); Basophils % (auto) 0.7 % (0.0-2.0); Eosinophils # (auto) 0.2 10 ^3/uL (0-0.8); Eosinophils % (auto) 4.2 % (0.0-7.0); Hematocrit 38.5 % (36.0-46.0); Hemoglobin 12.7 g/dL (12.2-16.2); Lymphocytes # (auto) 1.8 10 ^3/uL (0.4-5.4); Lymphocytes % (auto) 39.4 % (10.0-50.0); Mean Corpuscular Hemoglobin 28.8 pg (28.0-32.0); Mean Corpuscular Hgb Conc. 33.1 g/dL (32.0-36.0); Mean Corpuscular Volume 86.8 fL (80.0-100.0); Monocytes # (auto) 0.7 10 ^3/uL (0-1.3); Monocytes % (auto) 14.7 % (0.0-12.0); Neutrophils # (auto) 1.9 10 ^3/uL (1.6-8.6); Nucleated Red Blood Cells % 0.3 %; Red Blood Cells 4.43 10^6/uL (4.0-5.20); Red Cell Distribution Width 14.2 % (11.8-14.3); White Blood Cell 4.6 10^3/uL (4.4-10.8)
[2024-03-14 07:05] LABS: Alanine Aminotransferase 29 U/L (7-40); Albumin 4.1 g/dL (3.2-4.8); Alkaline Phosphatase 58 U/L (46-116); Anion Gap 3 (5-15); Aspartate Aminotransferase 16 U/L (13-40); BUN/Creatinine Ratio 8.3 (10.0-20.0); Blood Urea Nitrogen 6 mg/dL (9-23); Calcium 9.3 mg/dL (8.5-10.1); Carbon Dioxide 30 mmol/L (20-30); Chloride 104 mmol/L (98-107); Glucose 166 mg/dL (74-106); Potassium 4.3 mmol/L (3.5-5.1); Sodium 137 mmol/L (136-145)
[2024-03-14 07:06] LABS: Bilirubin, Total 0.3 mg/dL (0.2-1.0)
[2024-03-14 07:07] LABS: Total Protein 6.9 g/dL (5.7-8.2)
[2024-03-14] MEDS: ZINC SULFATE 220mg CAP or TAB PO SCH (09:31)
[2024-03-14] MEDS: cefTRIAXone 1GM/50ML D5W 50 ML IV SCH (09:31)
[2024-03-14] MEDS: ASPirin-EC 81 mg tab PO SCH (09:31)
[2024-03-14] MEDS: BENAZEPRIL HCL 10 MG TAB PO SCH (09:31)
[2024-03-14] MEDS: CHOLECALCIFEROL (VITD3) 1,000UNIT=25mCg TAB PO SCH (09:31)
[2024-03-14] MEDS: ENOXAPARIN SOD 40 MG/0.4 ML SYRINGE SC SCH (09:32)
[2024-03-14] MEDS ORDERED: PATIENTS OWN MEDICATION (Zinc Sulfate 220 MG) PO SCH (10:00)
[2024-03-14] MEDS ORDERED: PATIENTS OWN MEDICATION (Cholecalciferol (Vitamin D3 Super Strength) 4,000 UNIT) PO SCH (10:00)
[2024-03-14] MEDS: ACETAMINOPHEN 325 MG TAB PO PRN (12:29)
[2024-03-15 05:00] VITALS: BP 124/82; PULSE 72; RESP 19; TEMP 97.6; O2SAT 94
[2024-03-15 08:00] VITALS: PULSE 77; RESP 12; O2SAT 96
[2024-03-15 08:12] VITALS: O2SAT 96
[2024-03-15 09:00] VITALS: BP 128/84; PULSE 77; RESP 12; TEMP 99.2; O2SAT 96
[2024-03-15 13:00] VITALS: BP 131/92; PULSE 81; RESP 16; TEMP 98.7; O2SAT 95
[2024-03-15 13:39] VITALS: BP 131/92; PULSE 81; RESP 16; TEMP 98.7; O2SAT 95
== END 2024-03-15 15:15 | disposition home or self-care (01) | DRG 137 ==
LOC: ER 05:46 → OVERFLOW 11:10 → EAST 12:57
PROVIDERS: ADMIT Nurse Practitioner Family; ATTEND Nurse Practitioner Family
DX: U07.1 COVID-19 (principal); Z68.45 Body mass index [BMI] 70 or greater, adult; J98.4 Other disorders of lung; J45.909 Unspecified asthma, uncomplicated; E11.9 Type 2 diabetes mellitus without complications; E66.01 Morbid (severe) obesity due to excess calories; I10 Essential (primary) hypertension; N30.00 Acute cystitis without hematuria; Z71.3 Dietary counseling and surveillance; Z88.0 Allergy status to penicillin
CPT/HCPCS: 36415; 71045; 80048; 80053; 80061; 81001; 82962; 83036; 84443; 85025; 85379; 87086; 87426; 94640; G0378; J1815

== ENCOUNTER 2024-08-04 07:49 | Inpatient (IN) | payer OTHER ==
[~2024-08-04] VITALS: Ht 175.3 cm; Wt 217.8 kg
[2024-08-04 08:31] LABS: Urine Bacteria FEW /hpf (None Seen); Urine Blood Negative /uL (Negative); Urine Clarity Turbid (Clear); Urine Color Colorless (Yellow); Urine Protein, UAD Negative (Negative); Urine Specific Gravity 1.012 (1.001-1.035); Urine Urobilinogen Normal (Negative); Urine WBC 15 /hpf (0 - 5)
[2024-08-04 08:45] VITALS: PULSE 102; RESP 22; O2SAT 98
--- NOTE | 2024-08-04 12:27 | ED.PDOC ---
GI ASSESSMENT HPI Comments 38-year-old female with PMHx Asthma, DM, HTN presents with a chief complaint of abdominal pain x 1 week with associated vomiting and nausea. Patient states that her pain is localized to her suprapubic region, non-radiating, describes as cramping and rates her pain a 9/10. Patient mentions that "a long time ago, they told me I had a cyst". Patient denies any rectal bleeding, diarrhea, or any injuries/trauma prior to onset of symptoms. Patient is alert and oriented. Chief Complaint: Abdominal Pain Time Seen by MD: 12:19 Primary Care Provider: Dr Williamson Reviewed Notes: Medications, Allergies Allergies: Coded Allergies: Penicillins (Verified Allergy, Unknown, 10/03/21) Home Meds Active Scripts Nitrofurantoin Monohydrate Mac (Macrobid) 100 Mg Cap, 100 MG PO BID for 7 Days, #14 CAP Prov:LIAN SANCHES MD 05/08/22 Baclofen (Baclofen) 20 Mg Tab, 1 TAB PO TIDP PRN, #30 TAB 0 Refills as needed for muscle spasm Prov:GLORY CISNEROS MD 10/06/21 Benazepril Hcl (Benazepril Hcl) 10 Mg Tab, 10 MG PO DAILY for 30 Days, #30 TAB Prov:GLORY CISNEROS MD 10/06/21 Aspirin (Aspir-81) 81 Mg Tab, 1 TAB PO DAILY, #30 TAB 0 Refills Prov:GLORY CISNEROS MD 10/06/21 Metformin Hydrochloride (Metformin Hcl) 850 Mg Tab, 850 MG PO BIDWM for 30 Days, #60 TAB Prov:GLORY CISNEROS MD 10/06/21 Furosemide (Furosemide) 40 Mg Tab, 1 TAB PO DAILY for 7 Days, #7 TAB 0 Refills Prov:GLORY CISNEROS MD 10/06/21 Dexamethasone (Decadron) 4 Mg Tb, 6 MG PO DAILY for 5 Days, #8 TAB Prov:GLORY CISNEROS MD 10/06/21 Zinc Sulfate (Zinc Sulfate) 220 Mg Tab, 220 MG PO DAILY for 30 Days, #30 TAB Prov:GLORY CISNEROS MD 10/06/21 Cholecalciferol (Vitamin D3 Super Strength) 2,000 Unit Cap, 4000 UNIT PO DAILY for 30 Days, #60 CAP Prov:GLORY CISNEROS MD 10/06/21 Ascorbic Acid (Gnp Vitamin C W/Marlin Hips) 1,000 Mg Tab, 1000 MG PO DAILY for 30 Days, #30 TAB Prov:GLORY CISNEROS MD 10/06/21 Albuterol Sulfate (VENTOLIN MDI) 90 Mcg Ih, 180 MCG IN TIDPRN PRN, #1 INH 2 puffs (180 mcg) tid prn for shortness of breath Prov:GLORY CISNEROS MD 10/06/21 Reported Medications Beclomethasone Dipropionate (Qvar Redihaler) 80 Mcg/Act Aer, INH PRN 10/02/21 Information Source: Patient Mode of Arrival: Ambulatory Timing: Days Duration: Since onset Prehospital treatment: None Quality: Cramping Vomitus: None Stool: Normal Severity: Moderate Recent: None Recent Hx of: None Pain Location: Suprapubic Past Medical History PAST MEDICAL HISTORY: Asthma, DM, HTN Surgical History: Denies all surgeries [employer] History: Ovarian Cysts Family History Family History: Reviewed,noncontributory to illness Social History Smoker: Non-Smoker Alcohol: Occasionally Drugs: Denies Drug Use Lives In: Home Constitutional: denies: chills, diaphoresis, fatigue, fever, malaise, sweats, weakness, others EENTM: denies: blurred vision, double vision, ear bleeding, ear discharge, ear drainage, ear pain, ear ringing, eye pain, eye redness, hearing loss, mouth pain, mouth swelling, nasal discharge, nose bleeding, nose congestion, nose pain, photophobia, tearing, throat pain, throat swelling, voice changes, others Respiratory: denies: cough, hemoptysis, orthopnea, SOB at rest, shortness of breath, SOB with excertion, stridor, wheezing, others Cardiovascular: denies: chest pain, dizzy spells, diaphoresis, Dyspnea on exertion, edema, irregular heart beat, left arm pain, lightheadedness, palpitations, PND, syncope, others Gastrointestinal: reports: abdominal pain, nausea, vomiting; denies: abdomen distended, blood streaked bowels, constipated, diarrhea, dysphagia, difficulty swallowing, hematemesis, melena, poor appetite, poor fluid intake, rectal bleeding, rectal pain, others Genitourinary: denies: abnormal vagina bleeding, burning, dyspareunia, dysuria, flank pain, frequency, hematuria, incontinence, pain, , vagina discharge , urgency, others Neurological: denies: dizziness, fainting, headache, left sided numbness, left sided weakness, numbness, paresthesia, pre-existing deficit, right sided numbness, right sided weakness, seizure, speech problems, tingling, tremors, weakness, others Musculoskeletal: denies: back pain, gout, joint pain, joint swelling, muscle pain, muscle stiffness, neck pain, others Integumetry: denies: bruises, change in color, change in hair/nails, dryness, laceration, lesions, lumps, rash, wounds, others Allergic/Immunocompromised: denies: Difficulty Healing, Frequent Infections, Hives, Itching, others Hematologic/Lymphatic: denies: anemia, blood clots, easy bleeding, easy bruising, swollen glands, others Endocrine: denies: excessive hunger, excessive sweating, excessive thirst, excessive urination, flushing, intolerance to cold, intolerance to heat, unexplained weight gain, unexplained weight loss, others Psychiatric: denies: anxiety, bipolar disorder, depression, hopeless, panic di sorder, schizophrenia, sleepless, suicidal, others All Other Systems: Reviewed and Negative Physical Exam General Appearance: No Apparent Distress, Obese HEENT: Normal ENT Inspection, Pharynx Normal, TMs Normal Neck: Full Range of Motion, Non-Tender, Normal, Normal Inspection Respiratory: Chest Non-Tender, Lungs Clear, No Accessory Muscle Use, No Respiratory Distress, Normal Breath Sounds Cardiovascular: No Edema, No JVD, No Murmur, No Gallop, Normal Peripheral Pulses, Regular Rate/Rhythm Breast Exam: Deferred Gastrointestinal: No Organomegaly, No Pulsatile Mass, Normal Bowel Sounds, Soft, Suprapubic, Tenderness Genitalia: Deferred Pelvic: Deferred Rectal: Deferred Extremities: No calf tenderness, Normal capillary refill, Normal inspection, Normal range of motion, Non-tender, No pedal edema Musculoskeletal : Apperance: Normal Neurologic: Alert, channel marketing manager II-XII nml as Tested, No Motor Deficits, Normal Affect, Normal Mood, No Sensory Deficits Cerebellar Function: Normal Reflexes: Normal Skin: Dry, Normal Color, Warm Lymphatic: No Adenopathy Was a procedure done? Was a procedure done?: No GI differential Dx Differential Diagnosis: Appendicitis, Cholangitis, Cholecystitis, Gastritis/PUD, Gastroenteritis, Ischemic Bowel, Pancreatitis, PID, UTI, Urolithiasis, Dehydration, Diabetes/ DKA, Bacterial, Viral X-Ray, Labs, Meds, VS Vital Signs Date Time Temp Pulse Resp B/P (MAP) Pulse Ox O2 Delivery O2 Flow Rate FiO2 08/04/24 14:48 98.3 74 18 131/86 (101) 99 98.3 08/04/24 12:20 97.8 82 17 143/99 (114) 100 97.8 08/04/24 09:48 73 19 145/87 (106) 100 08/04/24 08:45 102 22 98 Room Air* 0 21 08/04/24 08:42 93 19 137/69 (91) 98 08/04/24 08:02 97.7 89 20 118/66 (83) 99 Lab Test 08/04/24 12:30 08/04/24 08:08 Range/Units White Blood Count 9.8 4.4-10.8 10^3/uL Red Blood Count 4.78 4.0-5.20 10^6/uL Hemoglobin 14.1 12.2-16.2 g/dL Hematocrit 42.0 36.0-46.0 % Mean Corpuscular Volume 87.9 80.0-100.0 fL Mean Corpuscular Hemoglobin 29.5 28.0-32.0 pg Mean Corpuscular Hemoglobin Concent 33.6 32.0-36.0 g/dL Red Cell Distribution Width 14.2 11.8-14.3 % Platelet Count 348 140-450 10^3/uL Mean Platelet Volume 8.2 6.9-10.8 fL Neutrophils (%) (Auto) 64.3 37.0-80.0 % Lymphocytes (%) (Auto) 25.2 10.0-50.0 % Monocytes (%) (Auto) 8.4 0.0-12.0 % Eosinophils (%) (Auto) 1.4 0.0-7.0 % Basophils (%) (Auto) 0.7 0.0-2.0 % Neutrophils # (Auto) 6.3 1.6-8.6 10 ^3/uL Lymphocytes # (Auto) 2.5 0.4-5.4 10 ^3/uL Monocytes # (Auto) 0.8 0-1.3 10 ^3/uL Eosinophils # (Auto) 0.1 0-0.8 10 ^3/uL Basophils # (Auto) 0.1 0-0.2 10 ^3/uL Nucleated Red Blood Cells 0.1 % Sodium Level 140 136-145 mmol/L Potassium Level 3.8 3.5-5.1 mmol/L Chloride Level 103 98-107 mmol/L Carbon Dioxide Level 31 20-31 mmol/L Anion Gap 6 5-15 Blood Urea Nitrogen 6 L 9-23 mg/dL Creatinine 0.75 0.550-1.02 mg/dL Glomerular Filtration Rate Calc 104 >90 mL/min BUN/Creatinine Ratio 8.0 L 10.0-20.0 Serum Glucose 127 H 74-106 mg/dL Calcium Level 10.3 8.7-10.4 mg/dL Urine Color Colorless Yellow Urine Clarity Turbid H Clear Urine pH 6.0 5.0-9.0 Urine Specific [place] 1.012 1.001-1.035 Urine Protein Negative Negative Urine Ketones Negative Negative Urine Blood Negative Negative /uL Urine Nitrite Negative Negative Urine Bilirubin Negative Negative Urine Urobilinogen Normal Negative mg/dL Urine Leukocyte Esterase 3+ Negative /uL Urine RBC 3 0 - 4 /hpf Urine WBC 15 0 - 5 /hpf Urine Squamous Epithelial Cells Mod <5 /hpf Urine Bacteria Few H None Seen /hpf Urine Glucose Normal Normal mg/dL Current Medications Medications (Trade) Dose Ordered Sig/Adebayo Route Start Time Stop Time Status Last Admin Famotidine (Pepcid Tablet) 20 mg ONCE ONCE PO 08/04/24 12:30 08/04/24 12:31 DC 08/04/24 13:04 Ondansetron HCl (Zofran Po) 4 mg ONCE ONCE PO 08/04/24 12:30 08/04/24 12:31 DC 08/04/24 13:04 Time of 1ST Reevaluation: 12:49 Reevaluation 1ST: Unchanged Patient Education/Counseling: Diagnosis, Treatment, Prognosis Family Education/Counseling: No Family Present Departure 1 Departure Time of Disposition: 14:50 (Patient presented with abdominal pain that was concerning for possible appendicits, gastritis, cholecystitis, colitis, gastroenteritis, sbo, or orther possible surgical emergency. Data: 1. I ordered and reviewed the result of at least 3 labs including a CBC, BMP, and Urinalysis. 2. I independently interpreted the following tests: CT Abdoment and Pelvis is concerning for acute cholecystitis .Risk:This patient has a high risk of morbidity due to further diagnostic testing or treatment and may suffer from an acute abdominal process disorder. Workup reveals acute cholecystitis and patient should be admitted for further workup. and possible expert consultation. ) Impression: Primary Impression: Acute cholecystitis Additional Impression: Abdominal pain Qualified Codes: R10.11 - Right upper quadrant pain Disposition: ADMITTED INPATIENT Admit to: Med Surg Condition: Serious Critical Care Note Critical Care Time?: Yes Critical care comment: Acute abdominal pain Authorized and Performed by: Emiliano Hameed MD Total critical care time: Approximately 38 minutes Due to a high probability of clinically significant, life threatening dete rioration, the patient required my highest level of preparedness to intervene emergently and I personally spent this critical care time directly and personally managing the patient. This critical care time included obtaining a history; examining the patient; pulse oximetry; ordering and review of studies; arranging urgent treatment with development of a management plan; evaluation of patient's response to treatment; frequent reassessment; and, discussions with other providers. This critical care time was performed to assess and manage the high probability of imminent, life-threatening deterioration that could result in multi-organ f ailure. It was exclusive of separately billable procedures and treating other patients and teaching time. Please see my other sections and the rest of the note for further information on patient assessment and treatment. Stability Stability form required: No I personally scribed for EMILIANO HAMEED MD ([email or web address]) on 08/04/24 at 12:27. Electronically submitted by Thor Walker ([email or web address]). EMILIANO HAMEED MD Aug 04, 2024 12:27
[2024-08-04 12:53] LABS: Basophils # (auto) 0.1 10 ^3/uL (0-0.2); Basophils % (auto) 0.7 % (0.0-2.0); Eosinophils # (auto) 0.1 10 ^3/uL (0-0.8); Eosinophils % (auto) 1.4 % (0.0-7.0); Hemoglobin 14.1 g/dL (12.2-16.2); Lymphocytes # (auto) 2.5 10 ^3/uL (0.4-5.4); Lymphocytes % (auto) 25.2 % (10.0-50.0); Mean Corpuscular Hemoglobin 29.5 pg (28.0-32.0); Mean Corpuscular Hgb Conc. 33.6 g/dL (32.0-36.0); Mean Corpuscular Volume 87.9 fL (80.0-100.0); Monocytes # (auto) 0.8 10 ^3/uL (0-1.3); Monocytes % (auto) 8.4 % (0.0-12.0); Neutrophils # (auto) 6.3 10 ^3/uL (1.6-8.6); Neutrophils % (auto) 64.3 % (37.0-80.0); Nucleated Red Blood Cells % 0.1 %; Platelet Count (auto) 348 10^3/uL (140-450); Red Blood Cells 4.78 10^6/uL (4.0-5.20); Red Cell Distribution Width 14.2 % (11.8-14.3); White Blood Cell 9.8 10^3/uL (4.4-10.8)
[2024-08-04] MEDS: FAMOTIDINE 20 MG TAB PO ONE (13:04)
[2024-08-04] MEDS: ONDANSETRON ODT 4 MG TAB PO ONE (13:04)
[2024-08-04 13:13] LABS: Anion Gap 6 (5-15); Carbon Dioxide 31 mmol/L (20-31); Chloride 103 mmol/L (98-107); Potassium 3.8 mmol/L (3.5-5.1); Sodium 140 mmol/L (136-145)
[2024-08-04 13:14] LABS: Calcium 10.3 mg/dL (8.7-10.4)
[2024-08-04 13:19] LABS: Blood Urea Nitrogen 6 mg/dL (9-23); Glucose 127 mg/dL (74-106)
--- NOTE | 2024-08-04 14:13 | DVH ---
CT ABDOMEN AND PELVIS WITHOUT CONTRAST CLINICAL HISTORY: right sided abdominal pain TECHNIQUE: Multiple contiguous axial images of the abdomen and pelvis without intravenous contrast. The images were reformatted degenerate coronal and sagittal reconstructions. All CT scans at this medical facility are performed using dose modulation techniques as appropriate t o a performed exam including the following:Automated exposure control was utilized; adjustment of the MA and/or KV according to patient size; and use of iterative reconstruction technique. Radiation Dose Information: CT Dose: CTDI volume is 26.86 mGy. Dose-length product is 1531.08 mGy*cm Comparison: CT ABD PELVIS WO CONTRAST on DOS: 06/08/20 FINDINGS: Evaluation of the abdomen and pelvis is limited without intravenous contrast. The gallbladder is distended. There are gallstones within the gallbladder. There is pericholecystic fat stranding. There is no significant pericholecystic fluid collection. There is fatty infiltration of the liver. The pancreas, kidneys, adrenal glands, and spleen appe ar within normal limits. There is no gross evidence of abdominal lymphadenopathy. There is no free fluid or free air. The small and large bowel loops demonstrate normal caliber. The abdominal aorta and IVC appear within normal limits. The bladder appears unremarkable. The uterus appears within normal limits.. There is no gross evide nce of a pelvic mass or fluid collection. Lung bases are clear. There is no acute osseous abnormality. IMPRESSION: 1. Distended gallbladder with gallstones and surrounding fat stranding suggestive of acute cholecysti tis. There is no pericholecystic fluid collection. 2. Hepatic steatosis. HS:Y
--- NOTE | 2024-08-04 15:13 | DVHHP2 ---
History of Present Illness Reason for Visit: Acute abdominal pain x 6 days History of Present Illness Orville Mancia is a 38YO F with pmHx of Asthma, DM, HTN, ovarian cysts, and morbid obesity who presents to the ED with c/o abdominal pain x 6 days with nausea, vomiting, fever, and chills. Patient reports the abdominal pain gets worse with eating. She denies chest pain, shortness of breath, and wheezing. She also reports that she has been compliant with her medications. Cardiovascular: HTN Pulmonary: COPD Endocrine: Diabetes Past Medical History ovarian cysts Family History: None Smoke: No ALCOHOL: none Drugs: None Lives: with Family Domestic Violence: Neg Review of Systems Constitutional: Yes: Fever, Chills; No: Sweats, Weakness, Malaise, Other Eyes: No: Pain, Vision change, Conjunctivae inflammation, Eyelid inflammation, Other, Redness ENT: No: Ear pain, Ear discharge, Nose pain, Nose discharge, Nose congestion, Mouth pain, Mouth swelling, Throat pain, Throat swelling, Other Respiratory: No: Cough, Dry, Shortness of breath, SOB with excertion, Wheezing, Hemoptysis, Pleuritic Pain, Sputum, Wheezing, Other Cardiovascular: No: Chest Pain, Palpitations, Orthopnea, Paroxysmal Noc. Dyspnea, Edema, Lt Headedness, Other Gastrointestinal: Nausea, Vomiting, Abdominal Pain; No: Diarrhea, Constipation, Melena, Hematochezia, Other Genitourinary: No Dysuria, No Frequency, No Incontinence, No Hematuria, No Retention, No Other Musculoskeletal: No: other, neck pain, shoulder pain, arm pain, back pain, hand pain, leg pain, foot pain Skin: No: Rash, Lesions, Jaundice, Bruising, Other Neurological: No: Weakness, Numbness, Incoordination, Change in speech, Confusion, Seizures, Other Allergies: Coded Allergies: Penicillins (Verified Allergy, Unknown, 10/03/21) Exam Vital Signs Vital Signs Date Time Temp Pulse Resp B/P (MAP) Pulse Ox O2 Delivery O2 Flow Rate FiO2 08/04/24 14:48 98.3 74 18 131/86 (101) 99 98.3 08/04/24 08:45 Room Air* 0 21 General Appearance: Alert, Oriented X3, Cooperative HEENT: PERRLA, EOMI Respiratory: Normal air movement Cardiovascular: Regular rate, Normal S1, Normal S2 Abdominal: Soft, Other (tenderness upon palpation) Extremities: No clubbing, No cyanosis, Normal pulses Skin: No rashes, No breakdown, No significant lesion Neuro: Normal gait, Normal speech, Strength at 5/5 X4 ext, Normal tone, Sensation intact Psych/Mental Status: Mental status NL, Mood NL Labs/Xrays Labs Test 08/04/24 12:30 08/04/24 08:08 Range/Units White Blood Count 9.8 4.4-10.8 10^3/uL Red Blood Count 4.78 4.0-5.20 10^6/uL Hemoglobin 14.1 12.2-16.2 g/dL Hematocrit 42.0 36.0-46.0 % Mean Corpuscular Volume 87.9 80.0-100.0 fL Mean Corpuscular Hemoglobin 29.5 28.0-32.0 pg Mean Corpuscular Hemoglobin Concent 33.6 32.0-36.0 g/dL Red Cell Distribution Width 14.2 11.8-14.3 % Platelet Count 348 140-450 10^3/uL Mean Platelet Volume 8.2 6.9-10.8 fL Neutrophils (%) (Auto) 64.3 37.0-80.0 % Lymphocytes (%) (Auto) 25.2 10.0-50.0 % Monocytes (%) (Auto) 8.4 0.0-12.0 % Eosinophils (%) (Auto) 1.4 0.0-7.0 % Basophils (%) (Auto) 0.7 0.0-2.0 % Neutrophils # (Auto) 6.3 1.6-8.6 10 ^3/uL Lymphocytes # (Auto) 2.5 0.4-5.4 10 ^3/uL Monocytes # (Auto) 0.8 0-1.3 10 ^3/uL Eosinophils # (Auto) 0.1 0-0.8 10 ^3/uL Basophils # (Auto) 0.1 0-0.2 10 ^3/uL Nucleated Red Blood Cells 0.1 % Sodium Level 140 136-145 mmol/L Potassium Level 3.8 3.5-5.1 mmol/L Chloride Level 103 98-107 mmol/L Carbon Dioxide Level 31 20-31 mmol/L Anion Gap 6 5-15 Blood Urea Nitrogen 6 L 9-23 mg/dL Creatinine 0.75 0.550-1.02 mg/dL Glomerular Filtration Rate Calc 104 >90 mL/min BUN/Creatinine Ratio 8.0 L 10.0-20.0 Serum Glucose 127 H 74-106 mg/dL Calcium Level 10.3 8.7-10.4 mg/dL Urine Color Colorless Yellow Urine Clarity Turbid H Clear Urine pH 6.0 5.0-9.0 Urine Specific [place] 1.012 1.001-1.035 Urine Protein Negative Negative Urine Ketones Negative Negative Urine Blood Negative Negative /uL Urine Nitrite Negative Negative Urine Bilirubin Negative Negative Urine Urobilinogen Normal Negative mg/dL Urine Leukocyte Esterase 3+ Negative /uL Urine RBC 3 0 - 4 /hpf Urine WBC 15 0 - 5 /hpf Urine Squamous Epithelial Cells Mod <5 /hpf Urine Bacteria Few H None Seen /hpf Urine Glucose Normal Normal mg/dL CT ABDOMEN AND PELVIS WITHOUT CONTRAST FINDINGS: Evaluation of the abdomen and pelvis is limited without intravenous contrast. The gallbladder is distended. There are gallstones within the gallbladder. There is pericholecystic fat stranding. There is no significant pericholecystic fluid collection. There is fatty infiltration of the liver. The pancreas, kidneys, adrenal glands, and spleen appear within normal limits. There is no gross evidence of abdominal lymphadenopathy. There is no free fluid or free air. The small and large bowel loops demonstrate normal caliber. The abdominal aorta and IVC appear within normal limits. The bladder appears unremarkable. The uterus appears within normal limits.. There is no gross evidence of a pelvic mass or fluid collection. Lung bases are clear. There is no acute osseous abnormality. IMPRESSION: 1. Distended gallbladder with gallstones and surrounding fat stranding suggestive of acute cholecystitis. There is no pericholecystic fluid collection. 2. Hepatic steatosis. Assessment/Plan Assessment/Plan Assessment: Acute cholecystitis Hepatic Steatosis Morbid Obesity UTI Hx of DM HgbA1C 7.5% Asthma HTN Ovarian cysts Plan: Admit to med surg Surgery consult Clear liquid diet NPO after MN Pain management IVf IV Abx Antiemetics CT A/P noted ISS and accuchecks AM labs Home medications reconciled Discussed plan of care with patient and nurse Plan discussed with: Patient Date of Service: Aug 04, 2024 Billing Provider: KIRK QUIÑONES Common Visit Codes: [id number] INP/OBS CARE (MOD) KIRK QUIÑONES Aug 04, 2024 15:13
[2024-08-04] MEDS: SODIUM CHLORIDE 0.9% 1,000 ML IV ONE (15:15)
[2024-08-04] MEDS ORDERED: ONDANSETRON HCL 4 MG/2 ML VIAL IV PRN (15:15)
[2024-08-04] MEDS ORDERED: DOCUSATE SOD 100 MG CAP PO PRN (15:15)
[2024-08-04] MEDS ORDERED: DEXTROSE (50%) 50ML SYRG IV PRN (15:15)
[2024-08-04] MEDS ORDERED: ACETAMINOPHEN 325 MG TAB PO PRN (15:15)
[2024-08-04] MEDS ORDERED: ALBUTEROL SULF HFA 90MCG INH 200DOSE IN PRN (15:15)
[2024-08-04] MEDS: ONDANSETRON HCL 4 MG/2 ML VIAL IV ONE (15:25)
[2024-08-04] MEDS: CEFEPIME 2GM/50ML NS 50 ML IV ONE (15:25)
[2024-08-04] MEDS: MORPHINE SULFATE 4 MG/ML SYR/VIAL IV ONE (15:26)
[2024-08-04 15:56] VITALS: BP 154/104; PULSE 78; RESP 16; TEMP 98.3; O2SAT 100
[2024-08-04] MEDS ORDERED: ALBUTEROL SULF 2.5 MG/0.5ML(0.5%) NEB SOLN NEB PRN (16:00)
[2024-08-04] MEDS: SODIUM CHLORIDE 0.9% 1,000 ML IV SCH (16:00)
[2024-08-04] MEDS: ACCU-CHEK COMFORT CURVE STRIP VI SCH (17:00)
[2024-08-04] MEDS: InsuLIN REG 1unit/0.01ml Soln (100units/ml) SC SCH (17:00)
[2024-08-04 18:50] VITALS: O2SAT 98
[2024-08-04 18:54] LABS: Alanine Aminotransferase 23 U/L (7-40); Albumin 4.6 g/dL (3.2-4.8); Alkaline Phosphatase 70 U/L (46-116); Anion Gap 7 (5-15); Aspartate Aminotransferase 12 U/L (13-40); Bilirubin, Total 0.6 mg/dL (0.2-1.0); Blood Urea Nitrogen 8 mg/dL (9-23); Carbon Dioxide 29 mmol/L (20-31); Chloride 103 mmol/L (98-107); Glucose 134 mg/dL (74-106); Potassium 3.7 mmol/L (3.5-5.1); Sodium 139 mmol/L (136-145); Total Protein 7.8 g/dL (5.7-8.2)
[2024-08-04] MEDS: metroNIDAZOLE 500MG/100ML 100 ML IV SCH (23:52)
[2024-08-05] MEDS: HYDROcodone-ACET 5/325MG TAB PO PRN (07:03)
[2024-08-05 08:00] VITALS: PULSE 79; RESP 19; O2SAT 98
[2024-08-05 08:27] LABS: Basophils # (auto) 0 10 ^3/uL (0-0.2); Basophils % (auto) 0.4 % (0.0-2.0); Eosinophils # (auto) 0.1 10 ^3/uL (0-0.8); Eosinophils % (auto) 1.1 % (0.0-7.0); Hematocrit 37.5 % (36.0-46.0); Hemoglobin 12.5 g/dL (12.2-16.2); Lymphocytes # (auto) 1.9 10 ^3/uL (0.4-5.4); Lymphocytes % (auto) 22.5 % (10.0-50.0); Mean Corpuscular Hemoglobin 29.2 pg (28.0-32.0); Mean Corpuscular Hgb Conc. 33.4 g/dL (32.0-36.0); Mean Corpuscular Volume 87.3 fL (80.0-100.0); Monocytes # (auto) 0.7 10 ^3/uL (0-1.3); Monocytes % (auto) 8.1 % (0.0-12.0); Neutrophils # (auto) 5.8 10 ^3/uL (1.6-8.6); Neutrophils % (auto) 67.9 % (37.0-80.0); Platelet Count (auto) 303 10^3/uL (140-450); Red Blood Cells 4.29 10^6/uL (4.0-5.20); Red Cell Distribution Width 13.8 % (11.8-14.3); White Blood Cell 8.6 10^3/uL (4.4-10.8)
[2024-08-05 09:01] VITALS: BP 137/81; PULSE 79; RESP 19; TEMP 98; O2SAT 98
[2024-08-05] MEDS: ROSE HIPS PO SCH (10:00)
[2024-08-05] MEDS: VITAMIN C PO SCH (10:00)
[2024-08-05] MEDS: cefTRIAXone 1GM/50ML D5W 50 ML IV SCH (10:23)
--- NOTE | 2024-08-05 10:33 | DVH ---
XY CHEST XRAY 1 VIEW, HISTORY: sob COMPARISON: XY CHEST PORTABLE on DOS: 03/13/24, CHEST PORTABLE on DOS: 10/06/21, CHEST PORTABLE on DOS: 10/03/21 XY CHEST PORTABLE on DOS: 03/13/24, CHEST PORTABLE on DOS: 10/06/21, CHEST PORTABLE on DOS: 10/03/21 TECHNICAL DATA: 1 view of the chest was obtained. FINDINGS: Lines and tubes: None Cardiomediastinal silhouette: normal Pulmonary vasculature: normal Lung expansion: normal Lung airspace: normal Lung interstitium: normal Pleura: normal Pneumothorax: no Bones: Unremarkable Other: no IMPRESSION: No acute intrathoracic abnormality.
[2024-08-05] MEDS: ZINC SULFATE 220mg CAP or TAB PO SCH (10:38)
[2024-08-05] MEDS: FUROSEMIDE 40 MG TAB PO SCH (10:43)
[2024-08-05] MEDS: CHOLECALCIFEROL (VITD3) 1,000UNIT=25mCg TAB PO SCH (10:43)
[2024-08-05] MEDS: BENAZEPRIL HCL 10 MG TAB PO SCH (10:43)
[2024-08-05 11:05] LABS: INR 1.1 (0.9-1.15); Prothrombin Time 11.6 sec (9.3-11.8)
[2024-08-05 11:06] LABS: Folate (Folic Acid) 10.53 ng/mL (>5.38)
[2024-08-05 11:55] LABS: Thyroid Stimulating Hormone 1.96 uIU/mL (0.55-4.78)
--- NOTE | 2024-08-05 11:58 | DVHPNRES ---
Progress Note Date Seen: Aug 05, 2024 Resident Creating Document: CASSI MRUILLO RESIDENT Medical Necessity Reason Pt with a Central, PICC or Fol: No Subjective Review of Systems TANISHA MADRIGAL is a 32 years old female with a PMH of type 2 DM, HTN, asthma presented to the ED with the chief complaints of abdominal pain since 1 week prior to admission. Patient reported abdominal pain has been started 1 week back in right side and suprapubic which is nonradiating, cramping, 9/10 intensity, getting worse with eating associated with nausea and vomiting. On my assessment patient denies hematemesis, rectal bleeding, diarrhea, chest pain, shortness of breath, fever and other associated symptoms. PMH: Type 2 DM, HTN, asthma , ovarian cyst PSH: Denies Family history: Reviewed, noncontributory Social history: Patient lives with family. Denies smoking, alcohol and other drug abuse Allergies: Penicillins Home medications: Metformin, lisinopril, inhalers for asthma Patient seen and examined at the bedside. Patient reported improvement in symptoms since admission. Reports no new complaints. CT abdominal pelvis showed gallstones and findings of acute cholecystitis along with hepatic steatosis, so consulted surgery for further evaluation. Patient reports: Feels better Objective vital signs Vital Sign Date Time Temp Pulse Resp B/P (MAP) Pulse Ox O2 Delivery O2 Flow Rate FiO2 08/05/24 10:43 105/72 08/05/24 09:01 98.0 79 19 98 98.0 08/05/24 08:00 Room Air* 0 21 Total Intake and Output 08/04/24 08/04/24 08/05/24 15:00 23:00 07:00 Intake Total 1050 ml 100 ml Balance 1050 ml 100 ml medications Current Medications Medications Dose Ordered Sig/Adebayo Route Start Time Stop Time Status Last Admin Dose Admin Ceftriaxone Sodium 50 ml @ 100 mls/hr DAILY@09 IV 08/05/24 09:00 08/05/24 10:23 100 MLS/HR Metronidazole 100 ml @ 100 mls/hr Q8HR IV 08/04/24 22:00 08/05/24 06:58 100 MLS/HR Sodium Chloride 1,000 ml @ 100 mls/hr Q10H IV 08/04/24 15:15 08/05/24 10:52 100 MLS/HR Acetaminophen/ Hydrocodone Bitart 1 tab Q4HP PRN PO 08/04/24 15:15 08/05/24 11:09 1 TAB Ondansetron HCl 4 mg Q4HP PRN IV 08/04/24 15:15 Docusate Sodium 100 mg BIDPRN PRN PO 08/04/24 15:15 Acetaminophen 650 mg Q6HP PRN PO 08/04/24 15:15 Morphine Sulfate 2 mg Q4HPRN PRN IV 08/04/24 15:15 Diagnostic Test (Pha) 1 strip ACHS 08/04/24 17:00 08/05/24 07:00 1 STRIP Insulin Human Regular ACHS SC 08/04/24 17:00 Dextrose 50 ml UD PRN IV 08/04/24 15:15 Albuterol 180 mcg TIDPRN PRN IN 08/04/24 15:15 UNV Benazepril HCl 10 mg DAILY PO 08/05/24 10:00 08/05/24 10:43 10 MG Furosemide 40 mg DAILY PO 08/05/24 10:00 08/05/24 10:43 40 MG Patient Own Medication 1,000 mg DAILY PO 08/05/24 10:00 Cholecalciferol 4,000 unit DAILY PO 08/05/24 10:00 08/05/24 10:43 4,000 UNIT Zinc Sulfate 220 mg DAILY PO 08/05/24 10:00 08/05/24 10:38 220 MG Albuterol 2.5 mg TIDPRN PRN NEB 08/04/24 16:00 Examination Pt is lying on bed General Appearance: Alert, Oriented X3, Cooperative, Not in acute distress HEENT: Atraumatic, Mucous membranes moist/pink Respiratory: Clear to auscultation, Normal air movement, No added sounds Cardiovascular: Regular rate, Normal S1, Normal S2, No murmurs Abdominal: Mild tenderness in mid and suprapubic abdomen, Villasenor's negative, Active bowel sounds, Extremities: No edema, Normal pulses, No tenderness/swelling Skin: No Significant rash, except past surgical scars Neuro: Normal speech, sensorimotor deficits none Psych/Mental Status: Mental status NL, Mood NL Nurse was there as sharperone during examination laboratory and microbiology Laboratory Tests 08/05/24 07:55 08/04/24 18:22 Test 08/04/24 18:22 Range/Units Serum Glucose 134 H 74-106 mg/dL Labs and/or images reviewed: Labs reviewed by me, Image(s) reviewed by me Problem List/Assessment/Plan Problem List/Assessment/Plan # acute cholelithiasis with acute cholecystitis - evident on CT abdominal pelvis - initially given cefepime 2 g, later switched to Rocephin and Flagyl - continue pain and nausea medication as needed - consulted surgeon for further evaluation # hepatic steatosis - outpatient follow up # acute complicated UTI - evident on urinalysis and physical examination - currently on ceftriaxone - ordered urine cultures # Vit D deficiency - Repleting # morbid obesity with a BMI 69.1 - counseled regarding lifestyle modifications including diet and exercise # type 2 diabetes mellitus with a HGB A1c 7.5 - continuously monitor - currently on mild insulin sliding scale # uncontrolled hypertension likely due to pain - continuously monitor No VTE PPX Protonix NPO Reconciled home meds Goals of care discussed with the patient for more than 27 minutes: Full code status Case management discussed with Dr. Han, patient and nurse Plan discussed with: Patient My Orders My Orders Orders - CASSI MURILLO RESIDENT Procedure Category Date Status Time Urine Bacterial LILA 08/05/24 Logged Culture 10:01 Drug Screen LAB 08/05/24 Logged 10:01 Chest Xray 1 View XY 08/05/24 Resulted 10:01 Pantoprazole PHA 08/05/24 Verified (Protonix) 12:00 Pantoprazole PHA 08/06/24 Verified (Protonix) 10:00 Date of Service: Aug 05, 2024 Billing Provider: RAMIRO HAN MD Common Visit Codes: [id number] INP/OBS CARE(HIGH) Coding Comment Comment Attending Attestation I saw and evaluated the patient. I reviewed the residents note and agree with findings and plan as documented in the residents note except as documented below. CASSI MURILLO RESIDENT Aug 05, 2024 11:58 RAMIRO HAN MD Aug 05, 2024 20:51
[2024-08-05] MEDS: PANTOPRAZOLE 40 MG/10 ML VIAL INJ IV ONE (12:45)
[2024-08-05 14:50] VITALS: O2SAT 98
[2024-08-05] MEDS: ERGOCALCIFEROL 50,000 UNIT(1.25MG) CAP PO SCH (16:55)
[2024-08-05 18:10] VITALS: PULSE 91; RESP 18; O2SAT 94
[2024-08-05 22:00] VITALS: BP 112/83; PULSE 91; RESP 22; TEMP 98; O2SAT 94
[2024-08-06] VITALS (9 sets, daily range): BP systolic 104–135; BP diastolic 64–85; PULSE 68–124; RESP 17–20; TEMP 97.3–98.4; O2SAT 92–99
[2024-08-06 07:12] LABS: Anion Gap 7 (5-15); Carbon Dioxide 31 mmol/L (20-31); Chloride 102 mmol/L (98-107); Potassium 3.6 mmol/L (3.5-5.1); Sodium 140 mmol/L (136-145)
[2024-08-06 07:19] LABS: Glucose 120 mg/dL (74-106)
[2024-08-06 07:20] LABS: BUN/Creatinine Ratio 7.5 (10.0-20.0); Blood Urea Nitrogen < 5 mg/dL (9-23)
[2024-08-06] MEDS: MORPHINE SULFATE INJ 2 MG/ml SYRG IV PRN (10:13)
[2024-08-06] MEDS: PANTOPRAZOLE 40 MG/10 ML VIAL INJ IV SCH (11:30)
--- NOTE | 2024-08-06 11:59 | DVH ---
Procedure: NM NM HIDA SCAN Exam Date: 08/06/2024 08:56 AM Clinical History: r/o cholecystitis. Comparison Study: CT scan dated 07/1924 Nuclear Medicine Hepatobiliary Scan. Technique: Following the intravenous administration of 5.7 mCi of technetium 99m labeled Choletec multiple plana r abdominal planar images were obtained in anterior projection in 1 minute intervals for 45 minutes . Imaging was continued for another 30 minutes after injection of 2 mg of morphine. Right lateral imag es were obtained at 95 minutes after injection. Findings: The liver appears grossly normal in size. There is no abnormal persistence of the cardiac or blood po ol activity. Gallbladder was not visualized throughout the exam despite morphine augmentation. Radiot racer was seen in the small bowel within the 1st 30 minutes of the study. Impression: 1. Findings compatible with cystic duct obstruction and acute cholecystitis. The common bile duct is patent.
--- NOTE | 2024-08-06 12:07 | DVHINCON2 ---
Date of service: Aug 06, 2024 Family History: Diabetes mellitus G8 MOTHER FH: pancreatic cancer G8 FATHER, , Cause: Pancreatic cancer Allergies: Coded Allergies: Penicillins (Verified Allergy, Unknown, 10/03/21) Home Meds Active Scripts Baclofen (Baclofen) 20 Mg Tab, 1 TAB PO TIDP PRN, #30 TAB 0 Refills as needed for muscle spasm Prov:GLORY CISNEROS MD 10/06/21 Aspirin (Aspir-81) 81 Mg Tab, 1 TAB PO DAILY, #30 TAB 0 Refills Prov:GLORY CISNEROS MD 10/06/21 Metformin Hydrochloride (Metformin Hcl) 850 Mg Tab, 850 MG PO BIDWM for 30 Days, #60 TAB Prov:GLORY CISNEROS MD 10/06/21 Cholecalciferol (Vitamin D3 Super Strength) 2,000 Unit Cap, 4000 UNIT PO DAILY for 30 Days, #60 CAP Prov:GLORY CISNEROS MD 10/06/21 Reported Medications Beclomethasone Dipropionate (Qvar Redihaler) 80 Mcg/Act Aer, INH PRN 10/02/21 Current Medications Current Medications Medications (Trade) Dose Ordered Sig/Adebayo Route PRN Reason Start Time Stop Time Status Last Admin Pantoprazole Sodium (Protonix) 40 mg DAILY IV 08/06/24 10:00 08/06/24 11:30 Ergocalciferol (Vitamin D 50,000 Unit) 50,000 unit Q7D PO 08/05/24 16:15 08/05/24 16:55 Vital Signs Vital Signs Date Time Temp Pulse Resp B/P (MAP) Pulse Ox O2 Delivery O2 Flow Rate FiO2 08/06/24 10:13 74 18 128/72 08/06/24 08:57 97.4 92 97.4 08/06/24 07:43 Room Air 08/06/24 07:43 0 21 Labs/Diagnostic Data Labs Test 08/06/24 11:29 08/06/24 06:40 08/05/24 07:55 08/04/24 18:22 Range/Units POC Glucose 107 H 70-106 mg/dl Sodium Level 140 136-145 mmol/L Potassium Level 3.6 3.5-5.1 mmol/L Chloride Level 102 98-107 mmol/L Carbon Dioxide Level 31 20-31 mmol/L Anion Gap 7 5-15 Blood Urea Nitrogen < 5 L 9-23 mg/dL Creatinine 0.67 0.550-1.02 mg/dL Glomerular Filtration Rate Calc 115 >90 mL/min BUN/Creatinine Ratio 7.5 L 10.0-20.0 Serum Glucose 120 H 74-106 mg/dL Calcium Level 10.0 8.7-10.4 mg/dL White Blood Count 8.6 4.4-10.8 10^3/uL Red Blood Count 4.29 4.0-5.20 10^6/uL Hemoglobin 12.5 12.2-16.2 g/dL Hematocrit 37.5 # 36.0-46.0 % Mean Corpuscular Volume 87.3 80.0-100.0 fL Mean Corpuscular Hemoglobin 29.2 28.0-32.0 pg Mean Corpuscular Hemoglobin Concent 33.4 32.0-36.0 g/dL Red Cell Distribution Width 13.8 11.8-14.3 % Platelet Count 303 140-450 10^3/uL Mean Platelet Volume 8.2 6.9-10.8 fL Neutrophils (%) (Auto) 67.9 37.0-80.0 % Lymphocytes (%) (Auto) 22.5 10.0-50.0 % Monocytes (%) (Auto) 8.1 0.0-12.0 % Eosinophils (%) (Auto) 1.1 0.0-7.0 % Basophils (%) (Auto) 0.4 0.0-2.0 % Neutrophils # (Auto) 5.8 1.6-8.6 10 ^3/uL Lymphocytes # (Auto) 1.9 0.4-5.4 10 ^3/uL Monocytes # (Auto) 0.7 0-1.3 10 ^3/uL Eosinophils # (Auto) 0.1 0-0.8 10 ^3/uL Basophils # (Auto) 0 0-0.2 10 ^3/uL Nucleated Red Blood Cells 0.0 % Prothrombin Time 11.6 9.3-11.8 sec Prothrombin Time INR 1.10 0.9-1.15 Activated Partial Thromboplast Time 32.0 24.5-34.5 SEC Magnesium Level 2.1 1.6-2.6 mg/dL Vitamin B12 Level 569 211-911 pg/mL Vitamin D 25-Hydroxy 26.4 L 30.0-100 ng/mL Folic Acid 10.53 >5.38 ng/mL Thyroid Stimulating Hormone (TSH) 1.96 0.55-4.78 uIU/mL Beta HCG, Quantitative 0.0 L 1.5-4.2 mIU/mL Total Bilirubin 0.6 0.2-1.0 mg/dL Aspartate Amino Transferase (AST) 12 L 13-40 U/L Alanine Aminotransferase (ALT) 23 7-40 U/L Alkaline Phosphatase 70 46-116 U/L Total Protein 7.8 5.7-8.2 g/dL Albumin 4.6 3.2-4.8 g/dL Test 08/04/24 12:30 08/04/24 08:08 Range/Units Hemoglobin A1c 7.5 H <5.7 % A1C Urine Color Colorless Yellow Urine Clarity Turbid H Clear Urine pH 6.0 5.0-9.0 Urine Specific [place] 1.012 1.001-1.035 Urine Protein Negative Negative Urine Ketones Negative Negative Urine Blood Negative Negative /uL Urine Nitrite Negative Negative Urine Bilirubin Negative Negative Urine Urobilinogen Normal Negative mg/dL Urine Leukocyte Esterase 3+ Negative /uL Urine RBC 3 0 - 4 /hpf Urine WBC 15 0 - 5 /hpf Urine Squamous Epithelial Cells Mod <5 /hpf Urine Bacteria Few H None Seen /hpf Urine Glucose Normal Normal mg/dL Assessment morbid obesity, symptomatic gallstone, HIDA scan negative for cholecystitis, WBC normal, LFT's normal, abdomen tender, non distended, explained to patient that her weight and size exceeds our operating room table capacity, she needs to go to a higher level of care for definitive treatment but is in no need for emergency surgical intervention. will advance po, intake Plan discussed with: Patient HÉCTOR BHATIA MD Aug 06, 2024 12:07
--- NOTE | 2024-08-06 16:13 | DVHPNRES ---
Progress Note Date Seen: Aug 06, 2024 Resident Creating Document: CASSI MURILLO RESIDENT Medical Necessity Reason Pt with a Central, PICC or Fol: No Subjective Review of Systems TANISHA MADRIGAL is a 32 years old female with a PMH of type 2 DM, HTN, asthma presented to the ED with the chief complaints of abdominal pain since 1 week prior to admission. Patient seen and examined at the bedside. Patient reported improvement in symptoms since admission. Reports no new complaints. CT abdominal pelvis showed gallstones and findings of acute cholecystitis along with hepatic steatosis, so consulted surgery for further evaluation, due to morbid obesity, symptomatic gallstone, HIDA scan negative for cholecystitis, abdomen tender, non distended, explained to patient that her weight and size exceeds our operating room table capacity, she needs to go to a higher level of care for definitive treatment but is in no need for emergency surgical intervention. will advancing po, intake if she tolerated possible DC tomorrow. Patient reports: Feels better Objective vital signs Vital Sign Date Time Temp Pulse Resp B/P (MAP) Pulse Ox O2 Delivery O2 Flow Rate FiO2 08/06/24 13:44 97.7 71 17 128/78 (95) 96 97.7 08/06/24 08:00 Room Air* 0 21 Total Intake and Output 08/05/24 08/05/24 08/06/24 15:00 23:00 07:00 Intake Total 150 ml 100 ml 1100 ml Balance 150 ml 100 ml 1100 ml medications Current Medications Medications Dose Ordered Sig/Adebayo Route Start Time Stop Time Status Last Admin Dose Admin Ceftriaxone Sodium 50 ml @ 100 mls/hr DAILY@09 IV 08/05/24 09:00 08/06/24 11:30 100 MLS/HR Metronidazole 100 ml @ 100 mls/hr Q8HR IV 08/04/24 22:00 08/06/24 13:57 100 MLS/HR Sodium Chloride 1,000 ml @ 100 mls/hr Q10H IV 08/04/24 15:15 08/06/24 11:30 100 MLS/HR Acetaminophen/ Hydrocodone Bitart 1 tab Q4HP PRN PO 08/04/24 15:15 08/06/24 06:16 1 TAB Ondansetron HCl 4 mg Q4HP PRN IV 08/04/24 15:15 Docusate Sodium 100 mg BIDPRN PRN PO 08/04/24 15:15 Acetaminophen 650 mg Q6HP PRN PO 08/04/24 15:15 Morphine Sulfate 2 mg Q4HPRN PRN IV 08/04/24 15:15 08/06/24 10:13 2 MG Diagnostic Test (Pha) 1 strip ACHS 08/04/24 17:00 08/06/24 11:32 1 STRIP Insulin Human Regular ACHS SC 08/04/24 17:00 08/06/24 06:09 2 UNITS Dextrose 50 ml UD PRN IV 08/04/24 15:15 Albuterol 180 mcg TIDPRN PRN IN 08/04/24 15:15 UNV Benazepril HCl 10 mg DAILY PO 08/05/24 10:00 08/05/24 10:43 10 MG Furosemide 40 mg DAILY PO 08/05/24 10:00 08/05/24 10:43 40 MG Patient Own Medication 1,000 mg DAILY PO 08/05/24 10:00 Cholecalciferol 4,000 unit DAILY PO 08/05/24 10:00 08/05/24 10:43 4,000 UNIT Zinc Sulfate 220 mg DAILY PO 08/05/24 10:00 08/05/24 10:38 220 MG Albuterol 2.5 mg TIDPRN PRN NEB 08/04/24 16:00 Pantoprazole Sodium 40 mg DAILY IV 08/06/24 10:00 08/06/24 11:30 40 MG Ergocalciferol 50,000 unit Q7D PO 08/05/24 16:15 08/05/24 16:55 50,000 UNIT Examination Pt is lying on bed General Appearance: Alert, Oriented X3, Cooperative, Not in acute distress HEENT: Atraumatic, Mucous membranes moist/pink Respiratory: Clear to auscultation, Normal air movement, No added sounds Cardiovascular: Regular rate, Normal S1, Normal S2, No murmurs Abdominal: Mild tenderness in mid and suprapubic abdomen, Villasenor's negative, Active bowel sounds, Extremities: No edema, Normal pulses, No tenderness/swelling Skin: No Significant rash, except past surgical scars Neuro: Normal speech, sensorimotor deficits none Psych/Mental Status: Mental status NL, Mood NL Nurse was there as sharperone during examination laboratory and microbiology Laboratory Tests 08/06/24 06:40 08/05/24 07:55 Test 08/06/24 06:40 Range/Units Serum Glucose 120 H 74-106 mg/dL Labs and/or images reviewed: Labs reviewed by me, Image(s) reviewed by me Problem List/Assessment/Plan Problem List/Assessment/Plan # acute cholelithiasis with acute cholecystitis - evident on CT abdominal pelvis and HIDA - initially given cefepime 2 g, later switched to Rocephin and Flagyl - continue pain and nausea medication as needed - consulted surgeon for further evaluation - # hepatic steatosis - outpatient follow up # acute complicated UTI - evident on urinalysis and physical examination - currently on ceftriaxone - ordered urine cultures # Vit D deficiency - Repleting # morbid obesity with a BMI 69.1 - counseled regarding lifestyle modifications including diet and exercise # type 2 diabetes mellitus with a HGB A1c 7.5 - continuously monitor - currently on mild insulin sliding scale # uncontrolled hypertension likely due to pain - continuously monitor No VTE PPX Protonix NPO Reconciled home meds Goals of care discussed with the patient for more than 27 minutes: Full code status Case management discussed with Dr. Han, patient and nurse. Due to morbid obesity, symptomatic gallstone, HIDA scan for cholecystitis, abdomen tender, non distended, explained to patient that her weight and size exceeds our operating room table capacity, she needs to go to a higher level of care for definitive treatment but is in no need for emergency surgical intervention. will advancing po, intake if she tolerated possible DC tomorrow. Plan discussed with: Patient Date of Service: Aug 06, 2024 Billing Provider: RAMIRO HAN MD Common Visit Codes: [id number] INP/OBS CARE(HIGH) Coding Comment Comment Attending Attestation I saw and evaluated the patient. I reviewed the residents note and agree with findings and plan as documented in the residents note except as documented below. CASSI MURILLO RESIDENT Aug 06, 2024 16:13 RAMIRO HAN MD Aug 06, 2024 21:42
[2024-08-07 00:10] VITALS: O2SAT 94
[2024-08-07 05:00] VITALS: BP 108/66; PULSE 88; RESP 17; TEMP 98; O2SAT 98
[2024-08-07 05:54] LABS: Chloride 103 mmol/L (98-107); Potassium 3.8 mmol/L (3.5-5.1); Sodium 140 mmol/L (136-145)
[2024-08-07 05:55] LABS: Anion Gap 7 (5-15); Calcium 9.8 mg/dL (8.7-10.4); Carbon Dioxide 30 mmol/L (20-31)
[2024-08-07 06:00] LABS: Glucose 167 mg/dL (74-106)
[2024-08-07 06:06] LABS: BUN/Creatinine Ratio 7.6 (10.0-20.0); Blood Urea Nitrogen < 5 mg/dL (9-23)
[2024-08-07 07:37] VITALS: O2SAT 98
[2024-08-07 09:00] VITALS: BP 149/87; PULSE 78; RESP 17; TEMP 98; O2SAT 94
--- NOTE | 2024-08-07 10:15 | DVHPN2 ---
Progress Note Date Seen: Aug 07, 2024 Medical Necessity Reason Pt with a Central, PICC or Fol: No Objective vital signs Vital Sign Date Time Temp Pulse Resp B/P (MAP) Pulse Ox O2 Delivery O2 Flow Rate FiO2 08/07/24 09:00 98.0 78 17 149/87 (107) 94 98.0 08/07/24 07:37 Room Air* 0 21 Total Intake and Output 08/06/24 08/06/24 08/07/24 15:00 23:00 07:00 Intake Total 1150 ml 700 ml 300 ml Output Total 1 ml Balance 1150 ml 699 ml 300 ml medications Current Medications Medications Dose Ordered Sig/Adebayo Route Start Time Stop Time Status Last Admin Dose Admin Ceftriaxone Sodium 50 ml @ 100 mls/hr DAILY@09 IV 08/05/24 09:00 08/06/24 11:30 100 MLS/HR Metronidazole 100 ml @ 100 mls/hr Q8HR IV 08/04/24 22:00 08/07/24 05:20 100 MLS/HR Sodium Chloride 1,000 ml @ 100 mls/hr Q10H IV 08/04/24 15:15 08/07/24 03:20 100 MLS/HR Acetaminophen/ Hydrocodone Bitart 1 tab Q4HP PRN PO 08/04/24 15:15 08/06/24 06:16 1 TAB Ondansetron HCl 4 mg Q4HP PRN IV 08/04/24 15:15 Docusate Sodium 100 mg BIDPRN PRN PO 08/04/24 15:15 Acetaminophen 650 mg Q6HP PRN PO 08/04/24 15:15 Morphine Sulfate 2 mg Q4HPRN PRN IV 08/04/24 15:15 08/06/24 10:13 2 MG Diagnostic Test (Pha) 1 strip ACHS 08/04/24 17:00 08/06/24 22:00 1 STRIP Insulin Human Regular ACHS SC 08/04/24 17:00 08/07/24 05:37 6 UNITS Dextrose 50 ml UD PRN IV 08/04/24 15:15 Albuterol 180 mcg TIDPRN PRN IN 08/04/24 15:15 UNV Benazepril HCl 10 mg DAILY PO 08/05/24 10:00 08/05/24 10:43 10 MG Furosemide 40 mg DAILY PO 08/05/24 10:00 08/05/24 10:43 40 MG Patient Own Medication 1,000 mg DAILY PO 08/05/24 10:00 Cholecalciferol 4,000 unit DAILY PO 08/05/24 10:00 08/05/24 10:43 4,000 UNIT Zinc Sulfate 220 mg DAILY PO 08/05/24 10:00 08/05/24 10:38 220 MG Albuterol 2.5 mg TIDPRN PRN NEB 08/04/24 16:00 Pantoprazole Sodium 40 mg DAILY IV 08/06/24 10:00 08/06/24 11:30 40 MG Ergocalciferol 50,000 unit Q7D PO 08/05/24 16:15 08/05/24 16:55 50,000 UNIT laboratory and microbiology Laboratory Tests 08/07/24 05:04 08/05/24 07:55 Test 08/07/24 05:04 Range/Units Serum Glucose 167 H 74-106 mg/dL Problem List/Assessment/Plan Problem List/Assessment/Plan 08/07/24 the HIDA scan was reported to me erroneously yesterday as showing no evidence of cystic duct obstruction, today on review of the scan and its official interpretation the scan is indicative of non visualization of thye gallbladder. patient remains afebrile and normotensive and has tolerated full liquid diet. recommend transfer to higher level of care for definitive treatment Plan discussed with: HÉCTOR Pinedo MD Aug 07, 2024 10:15
--- NOTE | 2024-08-07 13:07 | PEER ---
Peer to Peer Review Time DATE: 08/07/24 TIME: 13:06 Review and Recommendations: spoke with Dr Wade, approved for inpatient MORALESBEAU MD Aug 07, 2024 13:07
[2024-08-07 13:08] VITALS: BP 135/96; PULSE 76; RESP 17; TEMP 97.9; O2SAT 96
[2024-08-07] MEDS ORDERED: BENA10TA90 PO (13:58)
[2024-08-07] MEDS ORDERED: CIPR500T4 PO (13:58)
[2024-08-07] MEDS ORDERED: MET500T PO (13:58)
[2024-08-07] MEDS ORDERED: ERGO1CAP23 PO (13:58)
[2024-08-07] MEDS ORDERED: ACET-1882 PO (13:58)
[2024-08-07 15:15] VITALS: BP 135/96; PULSE 73; RESP 18; O2SAT 98
--- NOTE | 2024-08-07 17:41 | DVHDSRES ---
Discharge Summary Date of Admission Resident Creating Document: CASSI MURILLO RESIDENT Aug 04, 2024 at 15:15 Date of Discharge: Aug 07, 2024 Admitting Diagnosis Abdominal pain Labs/Diagnostic Data: Laboratory Results Test 08/07/24 11:37 08/07/24 05:04 08/05/24 07:55 08/04/24 18:22 POC Glucose 122 mg/dl (70-106) Sodium Level 140 mmol/L (136-145) Potassium Level 3.8 mmol/L (3.5-5.1) Chloride Level 103 mmol/L (98-107) Carbon Dioxide Level 30 mmol/L (20-31) Anion Gap 7 (5-15) Blood Urea Nitrogen < 5 mg/dL (9-23) Creatinine 0.66 mg/dL (0.550-1.02) Glomerular Filtration Rate Calc 115 mL/min (>90) BUN/Creatinine Ratio 7.6 (10.0-20.0) Serum Glucose 167 mg/dL (74-106) Calcium Level 9.8 mg/dL (8.7-10.4) White Blood Count 8.6 10^3/uL (4.4-10.8) Red Blood Count 4.29 10^6/uL (4.0-5.20) Hemoglobin 12.5 g/dL (12.2-16.2) Hematocrit 37.5 % (36.0-46.0) Mean Corpuscular Volume 87.3 fL (80.0-100.0) Mean Corpuscular Hemoglobin 29.2 pg (28.0-32.0) Mean Corpuscular Hemoglobin Concent 33.4 g/dL (32.0-36.0) Red Cell Distribution Width 13.8 % (11.8-14.3) Platelet Count 303 10^3/uL (140-450) Mean Platelet Volume 8.2 fL (6.9-10.8) Neutrophils (%) (Auto) 67.9 % (37.0-80.0) Lymphocytes (%) (Auto) 22.5 % (10.0-50.0) Monocytes (%) (Auto) 8.1 % (0.0-12.0) Eosinophils (%) (Auto) 1.1 % (0.0-7.0) Basophils (%) (Auto) 0.4 % (0.0-2.0) Neutrophils # (Auto) 5.8 10 ^3/uL (1.6-8.6) Lymphocytes # (Auto) 1.9 10 ^3/uL (0.4-5.4) Monocytes # (Auto) 0.7 10 ^3/uL (0-1.3) Eosinophils # (Auto) 0.1 10 ^3/uL (0-0.8) Basophils # (Auto) 0 10 ^3/uL (0-0.2) Nucleated Red Blood Cells 0.0 % Prothrombin Time 11.6 sec (9.3-11.8) Prothrombin Time INR 1.10 (0.9-1.15) Activated Partial Thromboplast Time 32.0 SEC (24.5-34.5) Magnesium Level 2.1 mg/dL (1.6-2.6) Vitamin B12 Level 569 pg/mL (211-911) Vitamin D 25-Hydroxy 26.4 ng/mL (30.0-100) Folic Acid 10.53 ng/mL (>5.38) Thyroid Stimulating Hormone (TSH) 1.96 uIU/mL (0.55-4.78) Beta HCG, Quantitative 0.0 mIU/mL (1.5-4.2) Total Bilirubin 0.6 mg/dL (0.2-1.0) Aspartate Amino Transferase (AST) 12 U/L (13-40) Alanine Aminotransferase (ALT) 23 U/L (7-40) Alkaline Phosphatase 70 U/L (46-116) Total Protein 7.8 g/dL (5.7-8.2) Albumin 4.6 g/dL (3.2-4.8) Test 08/04/24 12:30 08/04/24 08:08 Hemoglobin A1c 7.5 % A1C (<5.7) Urine Color Colorless (Yellow) Urine Clarity Turbid (Clear) Urine pH 6.0 (5.0-9.0) Urine Specific [place] 1.012 (1.001-1.035) Urine Protein Negative (Negative) Urine Ketones Negative (Negative) Urine Blood Negative /uL (Negative) Urine Nitrite Negative (Negative) Urine Bilirubin Negative (Negative) Urine Urobilinogen Normal mg/dL (Negative) Urine Leukocyte Esterase 3+ /uL (Negative) Urine RBC 3 /hpf (0 - 4) Urine WBC 15 /hpf (0 - 5) Urine Squamous Epithelial Cells Mod /hpf (<5) Urine Bacteria Few /hpf (None Seen) Urine Glucose Normal mg/dL (Normal) Other Laboratory Tests 08/07/24 05:04 08/05/24 07:55 Brief Hx & Hospital Course: TANISHA MADRIGAL is a 32 years old female with a PMH of type 2 DM, HTN, asthma presented to the ED with the chief complaints of abdominal pain since 1 week prior to admission. Patient reported abdominal pain has been started 1 week back in right side and suprapubic which is nonradiating, cramping, 9/10 intensity, getting worse with eating associated with nausea and vomiting. On my assessment patient denies hematemesis, rectal bleeding, diarrhea, chest pain, shortness of breath, fever and other associated symptoms. Patient required hospital admission for further evaluation and management of abdominal pain. CT abdominal pelvis showed gallstones and findings of acute cholecystitis along with hepatic steatosis, so consulted surgery for further evaluation And given Rocephin and Flagyl. HIDA scan showed findings compatible with cystic duct obstruction and acute cholecystitis. Surgical consult evaluated the patient, patient is asymptomatic, no urgent surgical indication needed no and explained to the patient her weight and size exceeds our operating room table capacity, she needs to go to a higher level of care for definitive treatment but is in no need for emergency surgical intervention advanced diet to full liquid as patient tolerated. Patient was advised to go higher level of care if symptoms persist at home. patient was having acute complicated UTI which is evident on urinalysis and examination. Ordered urine cultures, pending. Patient agreed to the discharge plan . Patient condition was improved, hemodynamically stable and in condition to be discharged home. Patient was advised about healthy lifestyle habits including diet and exercise. Patient was advised to go to higher level of care for possible surgical intervention and to follow up with PCP & surgeon. Pt is lying on bed General Appearance: Alert, Oriented X3, Cooperative, Not in acute distress HEENT: Atraumatic, Mucous membranes moist/pink Respiratory: Clear to auscultation, Normal air movement, No added sounds Cardiovascular: Regular rate, Normal S1, Normal S2, No murmurs Abdominal: Mild tenderness in mid and suprapubic abdomen, Villasenor's negative, Active bowel sounds, Extremities: No edema, Normal pulses, No tenderness/swelling Skin: No Significant rash, except past surgical scars Neuro: Normal speech, sensorimotor deficits none Psych/Mental Status: Mental status NL, Mood NL Nurse was there as sharperone during examination Operations or Procedures Procedure: NM NM HIDA SCAN Findings: The liver appears grossly normal in size. There is no abnormal persistence of the cardiac or blood pool activity. Gallbladder was not visualized throughout the exam despite morphine augmentation. Radiotracer was seen in the small bowel within the 1st 30 minutes of the study. Impression: 1. Findings compatible with cystic duct obstruction and acute cholecystitis. The common bile duct is patent. CT ABDOMEN AND PELVIS WITHOUT CONTRAST CLINICAL HISTORY: right sided abdominal pain IMPRESSION: 1. Distended gallbladder with gallstones and surrounding fat stranding suggestive of acute cholecystitis. There is no pericholecystic fluid collection. 2. Hepatic steatosis. Condition at Discharge: Stable Final Diagnosis/Problems List # acute cholelithiasis with acute cholecystitis # hepatic steatosis # acute complicated UTI # Vit D deficiency # morbid obesity with a BMI 69.1 # type 2 diabetes mellitus with a HGB A1c 7.5 # uncontrolled hypertension likely due to pain Discharge Disposition: Home Discharge Instruct/Medications Diet: See Comment Diet comment: low fat foods advance diet as tolerated Activity: No Restrictions, As Tolerated Follow Up/Referral: Surgeon at higher level of care Medications: Per EMR Discharge Statement: "Patient was advised to return to the ER or call 911 if any headaches, dizziness, shortness of breath, chest pain, abdominal pain, bleeding, fevers, or worsening of medical condition. Patient was counseled about treatment plan, medications, possible side effects, patientverbalized understanding. All questions were answered to the best of my ability. This discharge took greater then 30 minutes in planning, reviewing documentation, counseling the patient, and discussing with other team members." ASSESSMENT ASSESSMENT Assessment Acute cholecystitis Date of Service: Aug 07, 2024 Billing Provider: RAMIRO BOWENS MD Common Visit Codes: 81718-DSA/OBS DISCH DAY >30min Coding Comment Comment Attending Attestation I saw and evaluated the patient. I reviewed the residents note and agree with findings and plan as documented in the residents note except as documented below. Stable for discharge patient with acute cholecystitis. Currently on medical management, if not improved inform patient to go to [place] for bariatric capable surgery. CASSI MURILLO RESIDENT Aug 07, 2024 17:41 RAMIRO BOWENS MD Aug 07, 2024 21:21
== END 2024-08-07 15:30 | disposition home or self-care (01) ==
LOC: ER 07:49 → OVERFLOW 15:15 → CENTRAL 08-05 21:43
PROVIDERS: ADMIT Student in an Organized Health Care Education/Training Program; ATTEND Student in an Organized Health Care Education/Training Program
DX: K80.00 Calculus of gallbladder with acute cholecystitis without obstruction (principal); Z68.44 Body mass index [BMI] 60.0-69.9, adult; K76.0 Fatty (change of) liver, not elsewhere classified; E66.01 Morbid (severe) obesity due to excess calories; N39.0 Urinary tract infection, site not specified; I10 Essential (primary) hypertension; J44.89 Other specified chronic obstructive pulmonary disease; E55.9 Vitamin D deficiency, unspecified; E11.9 Type 2 diabetes mellitus without complications; Z88.0 Allergy status to penicillin; Z83.3 Family history of diabetes mellitus; Z80.0 Family history of malignant neoplasm of digestive organs
CPT/HCPCS: 36415; 71045; 74176; 78226; 80048; 80053; 81001; 82306; 82607; 82746; 82962; 83036; 83735; 84443; 84702; 85025; 85610; 85730; 96365; 96375; 99291; G0378; J0692; J1815; J2405; J2470; J3490; Q0162

== ENCOUNTER 2024-12-05 20:15 | Emergency (ER) | payer OTHER ==
[~2024-12-05] VITALS: Ht 175.3 cm; Wt 176.3 kg
[~2024-12-05 20:15] MED LIST changes: +ACET-1882 PO; -ALBUAER3 IN; -ASCO10003 PO; -CHOL1CAP47 PO; +CIPR500T4 PO; -DEX4T PO; +ERGO1CAP23 PO; -FURO40TA4 PO; +MET500T PO; -NITR-87 PO; -ZINC220T6 PO
--- NOTE | 2024-12-05 22:36 | DVH ---
CLINICAL INDICATION: Fall TECHNIQUE: XY L KNEE 3V XRAY Comparison: None FINDINGS/IMPRESSION: : Moderate medial and [id number] lateral tibiofemoral and patellofemoral compartment narrowing wi th associated osteophytosis, consistent with Kellgren Marv grade 2 osteoarthritis. There is no evidence of acute fracture or dislocation. A small to moderate joint effusion is noted. Soft tissues are otherwise unremarkable.
--- NOTE | 2024-12-06 01:28 | ED.PDOC ---
Back pain HPI HPI Comments C/C of left knee butterfield s/p fall in shower, landing directly on left knee. Pt denies LOC. CSM WNL, full ROM. No deformity, erythema. Skin intact. Pt unable to bear weight full. Denies numbness, weakness, neck pain, back pain, chest pain, abdominal pain or any other known injury. Chief Complaint: Lower Extremity Time Seen by MD: 21:04 Primary Care Provider: Dr Williamson Reviewed Notes: Nurses Notes, Medications, Allergies Allergies: Coded Allergies: Penicillins (Verified Allergy, Unknown, 10/03/21) Home Meds Active Scripts Methylprednisolone (Medrol Dosepak) 4 Mg Agustín, 4 MG PO UD for 6 Days, #21 TAB UAD Prov:LEOPOLDO BLANCOP 12/06/24 Tizanidine Hydrochloride (Tizanidine Hcl) 4 Mg Tab, 4 MG PO BID for 5 Days, #10 TAB Prov:LEOPOLDO BLANCOP 12/06/24 Metronidazole (Metronidazole) 500 Mg Tab, 500 MG PO TID for 7 Days, #21 TAB Prov:[facility] 08/07/24 Ciprofloxacin Hcl (Ciprofloxacin Hcl) 500 Mg Tab, 1 TAB PO BID for 7 Days, #14 TAB [facility] 08/07/24 Ergocalciferol (VITAMIN D 42316 UNIT) 50,000 [place], [address] UNIT PO Q7D for 30 Days, #10 CAP [facility] 08/07/24 Benazepril Hcl (Benazepril Hcl) 10 Mg Tab, 10 MG PO DAILY for 30 Days, #30 TAB Prov:[facility] 08/07/24 Acetaminophen (Acetaminophen) 325 Mg Tab, 650 MG PO Q6HP PRN for 10 Days, #80 TAB [facility] 08/07/24 Baclofen (Baclofen) 20 Mg Tab, 1 TAB PO TIDP PRN, #30 TAB 0 Refills as needed for muscle spasm Prov:GLORY CISNEROS MD 10/06/21 Aspirin (Aspir-81) 81 Mg Tab, 1 TAB PO DAILY, #30 TAB 0 Refills Prov:GLORY CISNEROS MD 10/06/21 Metformin Hydrochloride (Metformin Hcl) 850 Mg Tab, 850 MG PO BIDWM for 30 Days, #60 TAB Prov:GLORY CISNEROS MD 10/06/21 Reported Medications Beclomethasone Dipropionate (Qvar Redihaler) 80 Mcg/Act Aer, INH PRN 10/02/21 Mode of Arrival: Wheelchair Past Medical History PAST MEDICAL HISTORY: Asthma, DM, HTN Surgical History: Denies all surgeries P[employer] History: Ovarian Cysts Family History Family History: Reviewed,noncontributory to illness Social History Smoker: Non-Smoker Alcohol: Occasionally Drugs: Denies Drug Use Lives In: Home Constitutional: denies: chills, diaphoresis, fatigue, fever, malaise, sweats, weakness, others EENTM: denies: blurred vision, double vision, ear bleeding, ear discharge, ear drainage, ear pain, ear ringing, eye pain, eye redness, hearing loss, mouth pain, mouth swelling, nasal discharge, nose bleeding, nose congestion, nose pain, photophobia, tearing, throat pain, throat swelling, voice changes, others Respiratory: denies: cough, hemoptysis, orthopnea, SOB at rest, shortness of b reath, SOB with excertion, stridor, wheezing, others Cardiovascular: denies: chest pain, dizzy spells, diaphoresis, Dyspnea on exertion, edema, irregular heart beat, left arm pain, lightheadedness, palpitations, PND, syncope, others Gastrointestinal: denies: abdomen distended, abdominal pain, blood streaked bowels, constipated, diarrhea, dysphagia, difficulty swallowing, hematemesis, melena, nausea, poor appetite, poor fluid intake, rectal bleeding, rectal pain, vomiting, others Genitourinary: denies: abnormal vagina bleeding, burning, dyspareunia, dysuria, flank pain, frequency, hematuria, incontinence, pain, , vagina discharge, urgency, others Neurological: denies: dizziness, fainting, headache, left sided numbness, left sided weakness, numbness, paresthesia, pre-existing deficit, right sided numbness, right sided weakness, seizure, speech problems, tingling, tremors, weakness, others Musculoskeletal: reports: others (Left knee pain); denies: back pain, gout, joint pain, joint swelling, muscle pain, muscle stiffness, neck pain Integumetry: denies: bruises, change in color, change in hair/nails, dryness, laceration, lesions, lumps, rash, wounds, others Allergic/Immunocompromised: denies: Difficulty Healing, Frequent Infections, Hives, Itching, others Hematologic/Lymphatic: denies: anemia, blood clots, easy bleeding, easy bruising, swollen glands, others Endocrine: denies: excessive hunger, excessive sweating, excessive thirst, excessive urination, flushing, intolerance to cold, intolerance to heat, unexplained weight gain, unexplained weight loss, others Psychiatric: denies: anxiety, bipolar disorder, depression, hopeless, panic disorder, schizophrenia, sleepless, suicidal, others Physical Exam General Appearance: No Apparent Distress, Normal HEENT: Pharynx Normal Neck: Full Range of Motion, Non-Tender Respiratory: Lungs Clear, No Respiratory Distress, Normal Breath Sounds Cardiovascular: No Murmur, Normal Peripheral Pulses, Regular Rate/Rhythm Breast Exam: Deferred Gastrointestinal: Non Tender, Soft Genitalia: Deferred Pelvic: Deferred Rectal: Deferred Extremities: Normal capillary refill, Normal inspection, Normal range of motion, Non-tender, No pedal edema Musculoskeletal : Location: Left Extremity Location: Knee (Trace edema about the knee. Negative Frank's and drawer test negative ballottement. Sensory motion intact positive pedal pulses no noted external visible trauma.) Apperance: Normal Neurologic: Alert, doughnut fryer II-XII nml as Tested, No Motor Deficits, Normal Affect, Normal Mood, No Sensory Deficits Cerebellar Function: Normal Reflexes: Normal Skin: Dry, Normal Color, Warm Lymphatic: No Adenopathy Was a procedure done? Was a procedure done?: No Back Pain Differential Dx Differential Diagnosis: Fracture, Musculoskeletal Pain, Strain X-Ray, Labs, Meds, VS Vital Signs Date Time Temp Pulse Resp B/P (MAP) Pulse Ox O2 Delivery O2 Flow Rate FiO2 12/06/24 01:45 104 19 98 Room Air 12/06/24 01:45 98.2 104 19 138/84 (102) 98 98.2 12/05/24 21:50 98.2 107 16 141/95 (110) 96 98.2 Current Medications Medications (Trade) Dose Ordered Sig/Adebayo Route Start Time Stop Time Status Last Admin Acetaminophen/ Hydrocodone Bitart ([place] 5/325MG Tab) 2 tab ONCE ONCE PO 12/06/24 01:30 12/06/24 01:31 DC 12/06/24 01:36 Ketorolac Tromethamine (Toradol Injection) 60 mg ONCE ONCE IM 12/06/24 01:30 12/06/24 01:31 DC 12/06/24 01:37 X-Ray, Labs, Meds, VS Comment Left knee shows no acute fractures dislocations does show some osteoarthritis. Likely Knee sprain. Patient was given [place] 10 mg and Toradol 60 mg IM reports improvement in pain and function able to bear weight on it at this time. Requesting Discharge. Script Medrol Dosepak and muscle relaxer. Advised to take medications as prescribed side effects discussed. Advised on rice. Advised to follow up with her PCP in 2-3 days consider further imaging such as MRI if symptoms persist. ER return precautions given patient indicates understanding agrees with discharge plan of care. Time of 1ST Reevaluation: 02:10 Reevaluation 1ST: Improved Patient Education/Counseling: Diagnosis, Treatment, Prognosis, Need For Follow Up Family Education/Counseling: Diagnosis, Treatment, Prognosis, Need For Follow Up Departure 1 Departure Time of Disposition: 02:10 Impression: Primary Impression: Sprain of left knee/leg Qualified Codes: S83.92XA - Sprain of unspecified site of left knee, initial encounter Additional Impression: Primary osteoarthritis of left knee Disposition: 01 HOME / SELF CARE / HOMELESS Condition: Stable e-Prescriptions Methylprednisolone (Medrol Dosepak) 4 Mg Agustín 4 MG PO UD for 6 Days, #21 TAB UAD Prov: LEOPOLDO BLANCO 12/06/24 Tizanidine Hydrochloride (Tizanidine Hcl) 4 Mg Tab 4 MG PO BID for 5 Days, #10 TAB Prov: LEOPOLDO BLANCO 12/06/24 Discharged With: Significant Other Critical Care Note Critical Care Time?: No Stability Stability form required: No LEOPOLDO BLANCO Dec 06, 2024 01:28
[2024-12-06] MEDS: HYDROcodone-ACET 5/325MG TAB PO ONE (01:36)
[2024-12-06] MEDS: KETOROLAC TROMETH 60MG/2ML VIAL IM ONE (01:37)
[2024-12-06 01:45] VITALS: BP 138/84; PULSE 104; RESP 19; TEMP 98.2; O2SAT 98
[2024-12-06] MEDS ORDERED: METH4PAK PO (02:11)
[2024-12-06] MEDS ORDERED: TIZA-142 PO (02:11)
== END 2024-12-06 02:30 | disposition home or self-care (01) ==
LOC: ER 20:15
DX: S83.92XA Sprain of unspecified site of left knee, initial encounter (principal); M17.12 Unilateral primary osteoarthritis, left knee; J45.909 Unspecified asthma, uncomplicated; E11.9 Type 2 diabetes mellitus without complications; I10 Essential (primary) hypertension; Z79.51 Long term (current) use of inhaled steroids; Z79.82 Long term (current) use of aspirin; Z88.0 Allergy status to penicillin; W19.XXXA Unspecified fall, initial encounter; Y93.89 Activity, other specified; Y92.89 Other specified places as the place of occurrence of the external cause; Y99.8 Other external cause status
CPT/HCPCS: 73562; 96372; 99283; J1885